=== PATIENT | female | born 1945 | race Caucasian/White ===

== ENCOUNTER 2016-11-22 05:54 | Day surgery (SDC) | payer MEDICARE, BC ==
[2016-11-21 18:26] VITALS: BMI 27.9
[2016-11-22 06:49] LABS: #Eosinphils 0.1 thou/uL (0.0-0.7); #Monocytes 0.4 thou/uL (0.11-0.59); #Neutrophils 5.1 thou/uL (1.40-6.50); %Basophils 0.4 % (0.0-1.0); %Eosinophils 0.8 % (0.0-10.0); %Lymphocytes 14.6 % (21.0-51.0); %Monocytes 5.9 % (0.0-10.0); Hematocrit 30.5 % (36.0-47.0); Red Blood Cell (RBC) Count 3.15 mill/uL (4.20-5.40); White Blood Cell (WBC) Count 6.6 thou/uL (4.8-10.8)
[2016-11-22 06:55] LABS: PTT 32.6 SEC (22.9-36.1); Prothrombin Time 16.5 SEC (12.0-14.7)
[2016-11-22] MEDS ORDERED: Propofol 1,000 MG/100 ML VIAL IV ONE (06:58)
[2016-11-22 07:09] LABS: Anion Gap 18 mmol/L (10-20); BUN (Urea Nitrogen) 37 mg/dL (9.8-20.1); Calc. Creatinine Clearance 48 mL/min (70-130); Calcium 9.1 mg/dL (7.8-10.44); Carbon Dioxide 22 mmol/L (23-31); Chloride 101 mmol/L (98-107); Estimated GFR-MDRD 40
[2016-11-22] MEDS ORDERED: Propofol 200 MG/20 ML VIAL ONE (08:21)
--- NOTE | 2016-11-22 09:50 | OP ---
DATE OF PROCEDURE: 11/22/2016 REFERRING PHYSICIAN: Dr. Aniket Dyson REASON FOR PROCEDURE: Ms. Delong is a 71-year-old woman with prior history of mitral valve repair, underwent pulmonary venous isolation procedure 07/06/2016. She also has left atrial appendage ligat ion. MICHEL prior to this procedure demonstrates left appendage, which is well ligated without any pre sence of clots in left atrium. She has a dual chamber pacemaker in place. We attempted pace termination of the atypical atrial flutter, but was unsuccessful, even though maxi mizing the output. Following that, after adequate level of sedation achieved, a synchronized 70 shawn le shock promptly converted the patient back to sinus rhythm. CONCLUSION: Successful cardioversion. PLAN: For now, continue amiodarone and Eliquis for a month. After that likely we will stop Eliquis regardless hence the left atrial appendage ligation.
--- NOTE | 2016-11-22 10:14 | OP ---
DATE OF PROCEDURE: 11/22/2016 PROCEDURE: Pacemaker interrogation. REASON FOR PROCEDURE: Ms. Delong is a 71-year-old woman who has had remote mitral valve repair and maze procedure and left atrial appendage ligation. She had a pulmonary venous isolation in 06/2016 and had recurrent atrial flutter, here for cardioversion. Before and after the procedure as well as pace termination of the arrhythmia was attempted. Interrogation revealed a [employer] EnRhythm dual-chamber pacemaker with battery voltage is 2.85 volt s, which is approaching EVERARDO. The lead impedance 440 ohms, 776 ohms respectively in the atrium and R V, sensing in the PV is 0.4 millivolts, in the RV 8.9 millivolts flutter. Capture thresholds seem to be adequate in the ventricles. Interrogation of the episodes to indicate persisting atrial fibrillation since the beginning of October. Atrial fibrillation/flutter during October. ____ _ seems to indicate steady atrial flutter with cycle length about 320 milliseconds. Overdrive pacin g of this flutter was attempted and was not successful in terminating the rhythm. Following that ca rdioversion was performed. Please see separate report. Post-cardioversion sinus rhythm ensued and the patient was reprogrammed to base rate at 70 beats per minute. Also, we did turn on again the atrial antitachycardiac pacing therapies for potential recu rrence. CONCLUSION: 1. Adequately functioning dual chamber pacemaker, although approaching elective replacement indicat or. 2. Increased base rate for atrial device suppression. 3. Atrial and ventricular pacing was turned on. PLAN: Routine followup expedited, hence the lower battery voltage.
--- NOTE | 2016-11-22 18:36 | ECHO ---
DATE OF SERVICE: 11/22/16 REFERRING PHYSICIAN: Aniket Dyson M.D. REASON FOR PROCEDURE: The patient is a 71-year-old woman who has history of mitral valve repair and left atrial maze procedure/left atrial appendage ligation. She underwent pulmonary venous isolation procedure by Dr. Zaidi on July 06, 2016. She is on chronic amiodarone. She did develop recurrence of atypical flutter in the beginning of October. Persistent since. Here for MICHEL guided cardioversion. The patient is to resume her Eliquis medication. PROCEDURE: The patient received propofol per Anesthesia provider After adequate sedation achieved, the transesophageal electrogram probe was passed into the esophagus without difficulty. Patient tolerated the procedure well, no complications. RESULTS: 1. Left atrial enlarged about 4.7 cm in horizontal diameter. 2.. Pulmonary veins were visualized. Left atrial appendage appears to be ligated with trivial flow seen which is less than 1 mm. The actual body of the appendage is not well seen. The mitral valve with signs of prior repair with a ring in place. Mitral valve opens otherwise well and mild regurgitation noted only. The left ventricular systolic function is preserved. Left ventricular systolic function is normal. The interatrial septum has a trivially patent foraminal ovale. Agitated saline reveals no crossover from right to left, with epigastric pressure. The right side chamber is mildly dilated. The pacing wires in adequate position noted. No vegetations identified. The tricuspid valve was severely regurgitant. Peak TR velocity was about 2 meters per 3. Mild dilation of the inferior vena cava is visualized. The aortic valve is with 3 leaflets and mo stenosis, but with trace regurgitation. Pulmonary valve also with trace regurgitation. No stenosis are seen on the aortic or pulmonary or tricuspid valves or the mitral valve. 3. No pericardial effusion noted. The visualized portion of the ascending and descending aortic without aneurysm, dissection or significant atheroma. CONCLUSION: 1. No evidence of intracardiac clots. 2. Prior left atrial appendage ligation seems to still holds no significant residual atrial appendage is visualized. 3. Four pulmonary veins are seen. 4. Normal left ventricular systolic function. 5. Mitral valve repair with only mild mitral regurgitation left. No significant stenosis identified. 6. Moderate to severe tricuspid regurgitation seen with TR velocity of 2 meter per second, signs of right atrial pressure elevation is also seen. PLAN: Proceed with a cardioversion. [facility]
== END 2016-11-22 09:55 | disposition home or self-care (01) ==
LOC: CCL 05:54
PROVIDERS: ATTEND Internal Medicine Cardiovascular Disease
DX: I48.92 Unspecified atrial flutter (principal); I48.1 Persistent atrial fibrillation; E11.9 Type 2 diabetes mellitus without complications; E03.9 Hypothyroidism, unspecified; G40.909 Epilepsy, unspecified, not intractable, without status epilepticus; Z79.01 Long term (current) use of anticoagulants; Z79.4 Long term (current) use of insulin; Z79.899 Other long term (current) drug therapy; Z90.89 Acquired absence of other organs; Z90.711 Acquired absence of uterus with remaining cervical stump; Z98.890 Other specified postprocedural states
CPT/HCPCS: 80048; 85025; 85610; 85730; 92960; 93005; 93010; 93312; J2704

== ENCOUNTER 2017-01-24 11:26 | Inpatient (IN) | payer MEDICARE, BC ==
[2017-01-24 11:48] LABS: #Eosinphils 0.2 thou/uL (0.0-0.7); #Lymphocytes 3.7 thou/uL (1.20-3.40); #Monocytes 0.7 thou/uL (0.11-0.59); %Basophils 0.1 % (0.0-1.0); %Lymphocytes 38.5 % (21.0-51.0); %Monocytes 7.6 % (0.0-10.0); Hematocrit 35.7 % (36.0-47.0); Mean Platelet Volume 7.3 fL (7.4-10.4); Red Blood Cell (RBC) Count 3.71 mill/uL (4.20-5.40); White Blood Cell (WBC) Count 9.7 thou/uL (4.8-10.8)
[2017-01-24 11:59] LABS: PTT 25.9 SEC (22.9-36.1); Prothrombin Time 12.8 SEC (12.0-14.7)
[2017-01-24 12:08] LABS: ALT (SGPT) 12 U/L (8-55); AST (SGOT) 12 U/L (5-34); Alkaline Phosphatase 145 U/L (40-150); Anion Gap 16 mmol/L (10-20); BUN (Urea Nitrogen) 22 mg/dL (9.8-20.1); Bilirubin, Total 0.4 mg/dL (0.2-1.2); Calc. Creatinine Clearance 0 mL/min (70-130); Calcium 9.6 mg/dL (7.8-10.44); Carbon Dioxide 18 mmol/L (23-31); Estimated GFR-MDRD 42; Globulin 3.5 g/dL (2.4-3.5); Protein, Total 7.8 g/dL (6.0-8.3); Troponin I 0.017 ng/mL (< 0.028)
--- NOTE | 2017-01-24 12:16 | CT ---
CT OF THE BRAIN STROKE PROTOCOL: Date: 01/24/17 INDICATION: Stroke activation. 71-year-old female with altered mental status, tachycardia, and hypertension. 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 No acute infarct, hemorrhage, or hydrocephalus is present. Septum pellucidum and third ventricle are midline. There are bilateral scl eral jed. IMPRESSION: No acute intracranial abnormality. Findings called to Dr. Barnes at 1200 hours on 01/24/17. CODE CR. POS: [facility]
[2017-01-24 12:28] LABS: Chloride 99 mmol/L (98-107)
[2017-01-24] MEDS ORDERED: carBAMazepine 200 MG TAB PO SCH ×3 (13:30→19:15)
[2017-01-24] MEDS ORDERED: levETIRAcetam In NaCl (Iso-Os) 1,500 MG in Premix Bag 1 BAG IVPB ONE ×2 (13:30)
[2017-01-24 13:51] LABS: Bilirubin Negative (Negative); Blood, Urine Negative (Negative); Glucose, Urine (Dipstick) >=1000 mg/dL (Negative); Ketone, Urine Negative (Negative); Nitrite Negative (Negative); Protein, Urine (Dipstick) 30 mg/dL (Neg-Trace); Urobilinogen 0.2 mg/dL (0.2-1.0)
[2017-01-24 13:53] LABS: Bacteria/HPF None Seen HPF (None Seen); Hyaline Casts/LPF 0-3 HYALINE CAST LPF (0-3 Hyaline); RBC/HPF 0-3 HPF (0-3); Squamous Epithelial 0-3 HPF (0-3)
[2017-01-24] MEDS ORDERED: Digoxin 0.5 MG/2 ML AMP ONE (13:53)
[2017-01-24 13:57] LABS: Amphetamine Not Detected (NotDetected); Methadone Not Detected (NotDetected); Methamphetamine Not Detected (NotDetected)
--- NOTE | 2017-01-24 14:06 | CT ---
CTA OF THE HEAD AND NECK UTILIZING IV CONTRAST WITH 3D REFORMATTED IMAGING CT PERFUSION EVALUATION: COMPARISON: CT STROKE BRAIN DATED 01/24/17. FINDINGS: No gross abnormality is seen on the CT perfusion images to suggest the presence of acute ischemia. There is prominent motion artifact seen at the level of the carotid bifurcation limiting evaluation o f the carotid bulbs as well as the proximal internal carotid arteries bilaterally; however, the remai carla course of the internal carotid arteries appears within normal limits. The visualized carotid si phons, middle cerebral and anterior cerebral arteries are patent. Both posterior cerebral arteries a ppear patent. The basilar artery and vertebral arteries appear patent throughout their course. There is subsegmental volume loss involving the visualized lungs. The visualized soft tissues of the neck appear within normal limits. No definite acute intracranial abnormality is grossly evident. No area of abnormal enhancement is no becka. Enlarged surface ostium along the left parietal skull. Mastoid air cells are clear. There are bilateral scleral jed. IMPRESSION: 1. Limitations of the exam as above. 2. No definite evidence of acute ischemia by CT perfusion evaluation. 3. No definite hemodynamically significant stenosis; however, significant motion artifact limits det ail. 4. Findings called to Dr. Barnes at 12:25 p.m. on 01/24/17. CODE CR POS: [facility]
[2017-01-24] MEDS ORDERED: ISOVUE-370 76%-LOCM 1 ML ONE (15:52)
--- NOTE | 2017-01-24 16:01 | HP ---
PRIMARY CARE PHYSICIAN: Heriberto Deleon M.D. REASON FOR ADMISSION: Seizure, hypertensive urgency, atrial fibrillation with rapid ventricular response, rule out CVA. HISTORY OF PRESENT ILLNESS: A 71-year-old female who has underlying history of diabetes type 2, hypertension, chronic atrial fibrillation on chronic anticoagulation therapy, who was brought to the emergency room for altered mental status. Patient's family member present at bedside. They report that yesterday, patient had an appointment with Dr. Christopher Beyer and patient was instructed to hold Eliquis and amiodarone therapy because patient was planned for surgical procedure in [place] for her atrial fibrillation in coming February. This morning, the patient was completely fine, but she was slow in her action. She went to work. At workplace, she was doing initially completely normal, but subsequently she had episode of seizure activity and coworker reported as generalized tonic shaking activity and patient did not have any recall of this event. Patient was completely altered and she was postictal. She was not providing any history when she came to the emergency room, but after while she recovered and she was completely up to her baseline. Patient's daughter present at bedside who reports that she has minor blinking movement of seizure, which we are calling as a seizure, which happens all the time and she is taking Keppra, but this type of prolonged seizure never had before and this was first time happened at work place. She was denying any headaches. She was not having any fall. She did not have any fever or chills. She did not have any focal motor weakness or sensory symptoms. She did not have any chest pain, palpitation and dizziness. The patient has atrial fibrillation all the time and family member reports that her rate is difficult to control. She had a cardioversion in October, which was also unsuccessful and the patient had about a month ago, pacemaker procedure. The patient denies any fever, chills, UTI symptoms. She denies any constipation , melena or hematochezia. She denies any abdominal pain. She denies any slurred speech. ALLERGIES: No known drug allergies. CURRENT HOME MEDICATIONS: Amiodarone and Eliquis therapy was discontinued from yesterday, carbamazepine 100 mg twice daily, digoxin 0.125 mg p.o. daily, Lasix 40 mg p.o. daily, Glucotrol 10 mg p.o. daily, Keppra 500 mg p.o. b.i.d., Synthroid 125 mcg p.o. daily, lisinopril 20 mg p.o. daily, metformin 1000 mg p.o. b.i.d. and metoprolol 50 mg p.o. b.i.d. REVIEW OF SYSTEMS: The following complete review of systems was negative, unless otherwise mentioned in the HPI or below: CONSTITUTIONAL: Weight loss or gain, ability to conduct usual activities. SKIN: Rash, itching. EYES: Double vision, pain. ENT/MOUTH: Nose bleeding, neck stiffness, pain, tenderness. CARDIOVASCULAR: Palpitations, dyspnea on exertion, orthopnea. RESPIRATORY: Shortness of breath, wheezing, cough, hemoptysis, fever or night sweats. GASTROINTESTINAL: Poor appetite, abdominal pain, heartburn, nausea, vomiting, constipation, or diarrhea. GENITOURINARY: Urgency, frequency, dysuria, nocturia. MUSCULOSKELETAL: Pain, swelling. NEUROLOGIC/PSYCHIATRIC: Anxiety, depression. ALLERGY/IMMUNOLOGIC: Skin rash, bleeding tendency. Please see my HPI for pertinent positives and negatives. All other review of system reviewed and negative except that mentioned in the HPI. PAST MEDICAL HISTORY: Hypertension, dyslipidemia, seizure disorder, diabetes type 2, atrial fibrillation on chronic anticoagulation therapy with Eliquis. PAST SURGICAL HISTORY: Mitral valve repair, pacemaker procedure, herniorrhaphy , appendicectomy and tonsillectomy. PAST PSYCHIATRIC HISTORY: Reviewed and negative. SOCIAL HISTORY: Patient is working in an office as a corporate secretary. No history of tobacco, alcohol or illicit drug abuse. She is and lives with her daughter. FAMILY HISTORY: Hypertension, diabetes, and cancer runs among several family members. EMERGENCY ROOM COURSE: Patient is getting Cardizem drip. Patient is given aspirin 325 mg, digoxin 0.25 mg, Keppra 1500 mg, Tegretol 300 mg p.o. and Cardizem 10 mg IV push. PHYSICAL EXAMINATION: VITAL SIGNS: On arrival, blood pressure 223/143, pulse 155 irregular, respiratory rate 24, temperature 98.6, saturation 97% on room air. Weight 68.4 kilograms. GENERAL: Patient is currently alert, awake, no obvious acute distress, hypertensive in atrial fibrillation. HEAD: Normocephalic, atraumatic. EYES: Pupils round, reactive to light. Extraocular muscles intact. ENT: Oropharynx within normal limits. Moist mucous membranes. No oral lesions. No pharyngeal erythema, no exudate. NECK: Supple, no JVD, no thyromegaly, no carotid bruit, no meningeal signs of irritation. LUNGS: Clear to auscultation without any rhonchi or rales. CARDIAC: S1, S2 irregularly irregular. No murmur, no gallop, no rub. ABDOMEN: Soft, bowel sounds present, nontender, nondistended. No organomegaly , no mass, no suprapubic tenderness. BACK: Unremarkable, no CVA tenderness. EXTREMITIES: Upper extremity: Passive movement of all joints normal. Lower extremity: No edema. Good peripheral pulsation. SKIN: No skin rash. HEMATOLOGICAL SYSTEM: At this point, when I saw this patient, I could not determine any focal neurological deficits She is alert and oriented x3. Cranial nerves II-XII intact. Motor and sensation within normal limits. Speech is normal. No cerebellar sign. Reflexes symmetrical. SIGNIFICANT LABS: EKG based on my review, atrial fibrillation with rapid ventricular response, incomplete right bundle branch block pattern. CT of brain based on my review, no acute intracranial process. CT angiography head and neck negative for any acute stenosis. CBC: WBC 9.7, hemoglobin 12.5, platelets 180. INR 1.0. BMP: Sodium 134, potassium 3.6, chloride 99, carbon dioxide 18, BUN 22, creatinine 1.25, glucose 368, calcium 9.6. LFT: AST 12, ALT 12, CK-MB 1.6, troponin 0.017, albumin 4.3 , prolactin 66.06. Urinalysis: Leukocyte esterase trace, wbc 4-6. Urine drug screen negative. Dilantin level less than 1.8, valproic acid less than 12.5. Tegretol level 6.3. ASSESSMENT AND PLAN/IMPRESSION: 1. Acute seizure. 2. Acute encephalopathy, likely postictal phase. 3. Hypertensive urgency, stress emergency. 4. Atrial fibrillation with rapid ventricular response. 5. Chronic kidney disease stage 3. 6. Hyperglycemia associated with diabetes type 2. 7. Hypothyroidism. PLAN: Full admission to stroke floor. Neuro check q.4 hourly. Neurologic consultation. MRI is not possible because of pacemaker. Cardiology consultation because for atrial fibrillation. As per family member, the patient is on hold Eliquis and amiodarone therapy for upcoming surgical procedure in [place]. We will continue digoxin and will check digoxin level tomorrow. The patient selected home medication including Glucotrol, metformin will be continued. We will also resume Synthroid 125 mcg p.o. daily. We will increase Keppra to 1000 mg p.o. b.i.d. We will continue Cardizem drip while in hospital. Anticoagulation will defer to Cardiology. Cardiology team and pressurization mechanic will be consulted while in hospital. Code status: The patient is FULL CODE. Patient's daughter is surrogate decision maker. Disposition plan based on clinical course, we are expecting patient's stay in the hospital more than 2 midnights. Gastrointestinal prophylaxis, Pepcid 20 mg p.o. b.i.d. We will obtain carotid Doppler ultrasound while in hospital. Plan of care discussed with the family member at bedside in the emergency room. ALEX[facility]
[2017-01-24] MEDS ORDERED: Dextrose 5% in Water 1,000 ML IV PRN (16:08)
[2017-01-24] MEDS ORDERED: Loperamide HCl 2 MG CAP PO PRN (16:08)
[2017-01-24] MEDS ORDERED: Ondansetron HCl/PF 4 MG/2 ML Vial IVP PRN (16:08)
[2017-01-24] MEDS ORDERED: Artificial Tears 18 DROP/0.9 ML EA EYE PRN (16:08)
[2017-01-24] MEDS ORDERED: Zolpidem Tartrate 5 MG TAB PO PRN (16:08)
[2017-01-24] MEDS ORDERED: Ondansetron ODT 4 MG TAB PO PRN (16:08)
[2017-01-24] MEDS ORDERED: HYDROcodone/Acetaminophen 5/325 mg Tablet PO PRN (16:08)
[2017-01-24] MEDS ORDERED: Mag-Al 1200 mg/1200 mg/30 ML UDCUP PO PRN (16:08)
[2017-01-24] MEDS ORDERED: Nitroglycerin 0.4 MG TAB (25 Tab Bottle) SL PRN (16:08)
[2017-01-24] MEDS ORDERED: Dextrose 50% Abboject 50 ML SYRINGE SLOW IVP PRN (16:08)
[2017-01-24] MEDS ORDERED: cloNIDine 0.1 MG TAB PO PRN (16:08)
[2017-01-24] MEDS ORDERED: Sodium Chloride 0.65% Nasal 44 ML BOT EA NARE PRN (16:08)
[2017-01-24] MEDS ORDERED: Senokot 8.6 MG TAB PO PRN (16:08)
[2017-01-24] MEDS ORDERED: HumaLOG 300 UNITS/3 ML VIAL SC PRN ×2 (16:08)
[2017-01-24] MEDS ORDERED: Labetalol HCl 100 MG/20 ML VIAL SLOW IVP PRN (16:08)
[2017-01-24] MEDS ORDERED: Diabetic Tussin 200 MG/10 ML UDCUP PO PRN (16:08)
[2017-01-24] MEDS ORDERED: hydrALAZINE 20 MG/ML VIAL SLOW IVP PRN (16:08)
[2017-01-24] MEDS ORDERED: Milk Of Magnesia 30 ML UDCUP PO PRN (16:08)
[2017-01-24] MEDS ORDERED: Acetaminophen 325 MG TAB PO PRN (16:08)
[2017-01-24] MEDS ORDERED: Loratadine 10 MG TAB PO PRN (16:08)
[2017-01-24] MEDS ORDERED: Eucerin (Mineral Oil/Petrolatum,White) 30 gm Jar TOP PRN (16:08)
[2017-01-24 17:50] VITALS: BMI 29.9
[2017-01-24] MEDS: metFORMIN 500 MG TAB PO SCH (19:30)
--- NOTE | 2017-01-24 21:01 | CON ---
DATE OF CONSULTATION: 01/24/2017 CONSULTING PHYSICIAN: Hospitalist Service. IMPRESSION: Breakthrough seizures, likely secondary to a combination of the hyperglycemia and droppi ng Tegretol level. PLAN: 1. Increase Tegretol to 400 mg twice a day. 2. Continue Keppra 1500 mg twice a day. 3. Address blood sugar. 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 Her daughters report that her seizures have markedly increased in the short term with an actua l convulsive event which has not occurred in quite some time. She was brought in after having an raulito nt at work. Her Tegretol level was 6.3. Electrolytes otherwise unremarkable other than a blood suga r of 368. CT of the brain was normal. I would suggest increasing her Tegretol dose and I will follow up with her in the office.
[2017-01-24] MEDS: Enoxaparin Sodium 80 MG/0.8 ML SYRINGE SC SCH (21:15)
[2017-01-24] MEDS: Lisinopril 20 MG TAB PO SCH (21:16)
[2017-01-24] MEDS: Famotidine 20 MG TAB PO SCH (21:17)
[2017-01-24] MEDS: Atorvastatin Calcium 20 MG TAB PO SCH (21:17)
[2017-01-24] MEDS: levETIRAcetam In NaCl (Iso-Os) 1,000 MG in Premix Bag 1 BAG IVPB SCH ×2 (21:17)
[2017-01-24] MEDS: Metoprolol Tartrate 50 MG TAB PO SCH (21:17)
--- NOTE | 2017-01-24 22:54 | ULT ---
ULTRASOUND CAROTID DOPPLER: History: Altered mental status. TIA. Technique: Real-time grayscale and color doppler evaluation of the carotid and vertebral arteries per formed. FINDINGS: Antegrade flow both vertebral arteries. No hemodynamically significant stenosis. IMPRESSION: No hemodynamically significant stenosis. POS: [facility]
--- NOTE | 2017-01-25 04:03 | CON ---
DATE OF CONSULTATION: 01/24/2017 REASON FOR CONSULTATION: Atrial fibrillation with a rapid rate. HISTORY OF PRESENT ILLNESS: Ms. Delong is a very pleasant 71-year-old woman. The patient has a long history of atrial fibrillation. She has been on amiodarone following a valve surgery, she said sinc e 2008, despite that she had recurrent atrial fibrillation ablation in the past. She saw Dr. Beyer th is week and they decided to go ahead and let her go off the amiodarone and repeat an ablation in a co uple of months. The patient is on digoxin and metoprolol; however, she did not feel well and this mo rning just felt "fussy." Later this morning, she had a seizure which is something she has had previo usly. She is now resting comfortably and feeling better. Patient has had multiple cardioversions as outlined in the chart. The patient previously was on Eliq uis, but then she has been taken off Eliquis. ALLERGIES: None known. MEDICATIONS: 1. Previously on amiodarone, stop recently. 2. Eliquis. 3. Metoprolol 50 mg twice a day. 4. Digoxin 0.125 mg a day. REVIEW OF SYSTEMS: Constitutional: No significant weight gain or loss. Vision: No changes. Heari ng: No changes. Pulmonary: No cough or wheezing. Gastrointestinal: No nausea, vomiting, or diarr hea. Skin: No rashes. Neurologic: No unilateral weakness or numbness. Psychiatric: No unusual d epression or anxiety. Hematologic: No unusual bruising. Genitourinary: No burning with urination. PAST MEDICAL HISTORY: 1. Hypertension 2. Previous valve surgery, mitral valve repair. PSYCHIATRIC HISTORY: Negative. SOCIAL HISTORY: No alcohol or tobacco. She works in an office as a financial secretary. FAMILY HISTORY: Hypertension, diabetes. PHYSICAL EXAMINATION: GENERAL: A pleasant elderly woman resting comfortably, in no distress. VITAL SIGNS: Blood pressure 133/73, pulse is 120, irregularly irregular. HEENT: Sclerae nonicteric. Mouth mucous membranes moist. NECK: Supple. No lymphadenopathy. LUNGS: Clear. No wheezing, rales, or rhonchi. CARDIAC: Irregularly irregular. No murmur, rub, or gallop. ABDOMEN: Soft, nontender. EXTREMITIES: No clubbing, no cyanosis. There is no edema. HEMATOLOGIC: No unusual bruising. PSYCHIATRIC: Mood and affect normal. NEUROLOGIC: Grossly normal. PERTINENT LABORATORY AND X-RAY FINDINGS: Hemoglobin was 12.5. Potassium was 3.6, glucose was 368. Prolactin 66.06. Troponin 0.017. EKG, atrial fibrillation with a rapid rate. ASSESSMENT: 1. Recurrent atrial fibrillation with a rapid rate. 2. Seizure today, probably unrelated to the fibrillation. PLAN: 1. Dr. Dyson and Pepito to resume care tomorrow. 2. Keep n.p.o. until they see her for possible transesophageal echo and cardioversion. 3. We will resume enoxaparin 70 mg q.12 hours until decision is made about cardioversion. We will l ikely need to be anticoagulant. 4. The patient is currently ordered be on enoxaparin.
[2017-01-25 05:38] LABS: #Basophils 0.1 thou/uL (0.0-0.2); #Eosinphils 0.1 thou/uL (0.0-0.7); #Lymphocytes 1.3 thou/uL (1.20-3.40); #Monocytes 0.6 thou/uL (0.11-0.59); #Neutrophils 3.8 thou/uL (1.40-6.50); %Eosinophils 1.6 % (0.0-10.0); %Lymphocytes 22.7 % (21.0-51.0); %Monocytes 9.7 % (0.0-10.0); Hematocrit 30.6 % (36.0-47.0); Mean Platelet Volume 7.8 fL (7.4-10.4); Red Blood Cell (RBC) Count 3.16 mill/uL (4.20-5.40); White Blood Cell (WBC) Count 5.9 thou/uL (4.8-10.8)
[2017-01-25 05:59] LABS: ALT (SGPT) 9 U/L (8-55); AST (SGOT) 11 U/L (5-34); Alkaline Phosphatase 107 U/L (40-150); Anion Gap 10 mmol/L (10-20); BUN (Urea Nitrogen) 16 mg/dL (9.8-20.1); Bilirubin, Total 0.3 mg/dL (0.2-1.2); Calc. Creatinine Clearance 72 mL/min (70-130); Carbon Dioxide 27 mmol/L (23-31); Chloride 102 mmol/L (98-107); Cholesterol 166 mg/dl (< 200 Desired); Estimated GFR-MDRD 61; Globulin 2.8 g/dL (2.4-3.5); LDL Cholesterol, Calculated 76 mg/dL; Protein, Total 6.4 g/dL (6.0-8.3)
[2017-01-25] MEDS ORDERED: Levothyroxine Sodium 125 MCG TAB PO SCH ×2 (06:00→09:00)
[2017-01-25 06:07] LABS: Digoxin 0.84 ng/mL (0.8-2.0)
[2017-01-25] MEDS: metFORMIN 500 MG TAB PO SCH ×3 (08:38→17:25)
[2017-01-25] MEDS: Enoxaparin Sodium 80 MG/0.8 ML SYRINGE SC SCH ×3 (08:39→21:07)
[2017-01-25] MEDS: Digoxin 0.125 MG TAB PO SCH (08:40)
[2017-01-25] MEDS: carBAMazepine 200 MG TAB PO SCH ×2 (08:40→17:25)
[2017-01-25] MEDS: Metoprolol Tartrate 50 MG TAB PO SCH ×4 (08:41→21:09)
[2017-01-25] MEDS: Famotidine 20 MG TAB PO SCH ×2 (08:41→21:08)
[2017-01-25] MEDS: Lisinopril 20 MG TAB PO SCH ×2 (08:41→21:09)
[2017-01-25] MEDS: levETIRAcetam In NaCl (Iso-Os) 1,000 MG in Premix Bag 1 BAG IVPB SCH ×4 (08:42→21:07)
--- NOTE | 2017-01-25 09:00 | PDOC.PN ---
- Subjective Encounter Start Date: 01/25/17 Encounter Start Time: 07:00 -: old records requested/rev pt is doing well, no seizure, on cardizem drip, rate controlled, daughter bedside - Objective Resuscitation Status: Resuscitation Status FULL:Full Resuscitation MAR Reviewed: Yes Vital Signs & Weight: Vital Signs (12 hours) Temp Pulse Resp BP BP Pulse Ox 01/25/17 08:41 112/75 01/25/17 08:40 102 H 01/25/17 07:36 98 F 91 16 92 L 01/25/17 07:14 98 F 102 H 20 112/75 97 01/25/17 04:18 97 01/25/17 03:38 98 F 91 16 115/69 97 01/24/17 23:13 98.6 F 87 16 131/62 97 01/24/17 21:16 133/60 01/24/17 21:05 98.6 F 87 16 Weight Weight 173 lb 11.2 oz Result Diagrams: 01/25/17 05:23 01/25/17 05:23 Additional Labs: Accuchecks 01/25/17 01/24/17 05:39 21:19 POC Glucose 220 H 298 H Radiology Reviewed by me: Yes (carotid us - no stenosis) EKG Reviewed by me: Yes (afib) Phys Exam - Physical Examination Constitutional: NAD HEENT: PERRLA, moist MMs, sclera anicteric Neck: no JVD, supple Respiratory: no wheezing, no rales, no rhonchi Cardiovascular: no significant murmur, irregular Gastrointestinal: soft, non-tender, no distention, positive bowel sounds Musculoskeletal: no edema, pulses present Neurological: non-focal, normal sensation, moves all 4 limbs Lymphatic: no nodes Psychiatric: normal affect, A&O x 3 Skin: no rash, normal turgor Dx/Plan (1) Atrial fibrillation with RVR Code(s): I48.91 - UNSPECIFIED ATRIAL FIBRILLATION Status: Acute (2) Encephalopathy acute Code(s): G93.40 - ENCEPHALOPATHY, UNSPECIFIED Status: Acute (3) Chronic anticoagulation Code(s): Z79.01 - [employer] (CURRENT) USE OF ANTICOAGULANTS Status: Chronic (4) Diabetes type 2, controlled Code(s): E11.9 - TYPE 2 DIABETES MELLITUS WITHOUT COMPLICATIONS Status: Chronic (5) Dyslipidemia Code(s): E78.5 - HYPERLIPIDEMIA, UNSPECIFIED Status: Chronic (6) Hypothyroidism Code(s): E03.9 - HYPOTHYROIDISM, UNSPECIFIED Status: Chronic (7) Seizure disorder Code(s): G40.909 - EPILEPSY, UNSP, NOT INTRACTABLE, WITHOUT STATUS EPILEPTICUS Status: Chronic - Plan cont current plan of care, plan discussed w/ family * rate controlled with cardizem * pt is npo in case if she needs cardioversion * continue lovenox * discussed with daughter * tegretol dose increased and now no more seizure * medication reviewed as below * symptomatic treatment. * will monitor today and consider discharge when cardiology ok and rate controlled with oral meds Review of Systems - Review of Systems ENT: negative: Ear Pain, Ear Discharge, Nose Pain, Nose Discharge, Nose Congestion, Mouth Pain, Mouth Swelling, Throat Pain, Throat Swelling, Other Respiratory: negative: Cough, Dry, Shortness of Breath, Hemoptysis, SOB with Excertion, Pleuritic Pain, Sputum, Wheezing Cardiovascular: negative: Chest Pain, Palpitations, Orthopnea, Paroxysmal Noc. Dyspnea, Edema, Light Headedness, Other Gastrointestinal: negative: Nausea, Vomiting, Abdominal Pain, Diarrhea, Constipation, Melena, Hematochezia, Other Genitourinary: negative: Dysuria, Frequency, Incontinence, Hematuria, Retention , Other Musculoskeletal: negative: Neck Pain, Shoulder Pain, Arm Pain, Back Pain, Hand Pain, Leg Pain, Foot Pain, Other Skin: negative: Rash, Lesions, Brian, Bruising, Other - Medications/Allergies Allergies/Adverse Reactions: Allergies Allergy/AdvReac Type Severity Reaction Status Date / Time No Known Drug Allergies Allergy Verified 11/21/16 18:15 Medications: Current Medications Acetaminophen (Tylenol) 650 mg PO Q4H PRN PRN Reason: Headache/Fever or Pain Hydrocodone Bitart/Acetaminophen ([place] 5/325) 1 tab PO Q4H PRN PRN Reason: Moderate Pain (4-6) Al Hydroxide/Mg Hydroxide (Maalox) 30 ml PO Q6H PRN PRN Reason: Heartburn or Indigestion Artificial Tears (Tears Naturale) 0 drop EA EYE PRN PRN PRN Reason: Dry Eyes Aspirin (Aspirin Chewable) 81 mg PO DAILY [facility] Last Admin: 01/25/17 08:40 Dose: 81 mg Atorvastatin Calcium (Lipitor) 20 mg PO HS [facility] Last Admin: 01/24/17 21:17 Dose: 20 mg Carbamazepine (Tegretol) 400 mg PO BID-[facility] Last Admin: 01/25/17 08:40 Dose: 400 mg Clonidine (Catapres) 0.1 mg PO Q4H PRN PRN Reason: Systolic BP > 180 Dextrose/Water (Dextrose 50%) 25 gm SLOW IVP PRN PRN PRN Reason: Hypoglycemia Digoxin (Lanoxin) 0.125 mg PO DAILY [facility] Last Admin: 01/25/17 08:40 Dose: 0.125 mg Enoxaparin Sodium (Lovenox) 70 mg SC 0900,2100 [facility] Last Admin: 01/25/17 08:39 Dose: Not Given Famotidine (Pepcid) 20 mg PO BID [facility] Last Admin: 01/25/17 08:41 Dose: 20 mg Glipizide (Glucotrol Xl) 10 mg PO QAM-[facility] Last Admin: 01/25/17 08:38 Dose: Not Given Glucagon (Glucagon) 1 mg IM PRN PRN PRN Reason: Hypoglycemia Guaifenesin (Robitussin Sf) 200 mg PO Q4H PRN PRN Reason: Cough Hydralazine HCl (Apresoline) 10 mg SLOW IVP Q4H PRN PRN Reason: Systolic BP > 180 Dextrose/Water (D5w) 1,000 mls @ 0 mls/hr IV .Q0M PRN; As Directed PRN Reason: Hypoglycemia Levetiracetam 1,000 mg/ Device 100 mls @ 200 mls/hr IVPB BID [facility] Last Admin: 01/25/17 08:42 Dose: 100 mls Insulin Human Lispro (Humalog) 0 units SC .MODERATE SLIDING SC PRN PRN Reason: Moderate Correctional Scale Insulin Human Lispro (Humalog) 0 units SC .BEDTIME SLIDING SC PRN PRN Reason: Bedtime Correctional Scale Last Admin: 01/24/17 21:29 Dose: 3 unit Labetalol HCl (Normodyne) 20 mg SLOW IVP Q4H PRN PRN Reason: Systolic BP > 180 Levothyroxine Sodium (Synthroid) 125 mcg PO 0900 [facility] Stop: 01/25/17 10:00 Last Admin: 01/25/17 08:58 Dose: 125 mcg Levothyroxine Sodium (Synthroid) 125 mcg PO 0600 [facility] Lisinopril (Zestril) 20 mg PO BID [facility] Last Admin: 01/25/17 08:41 Dose: 20 mg Loperamide HCl (Imodium) 2 mg PO PRN PRN PRN Reason: Diarrhea/Loose Stools Loratadine (Claritin) 10 mg PO DAILYPRN PRN PRN Reason: Sinus Symptoms Magnesium Hydroxide (Milk Of Magnesium) 30 ml PO DAILYPRN PRN PRN Reason: Constipation Metformin HCl (Glucophage) 1,000 mg PO BID-[facility] Last Admin: 01/25/17 08:38 Dose: Not Given Metoprolol Tartrate (Lopressor) 50 mg PO BID [facility] Last Admin: 01/25/17 08:41 Dose: 50 mg Mineral Oil/White Petrolatum (Eucerin Cream) 0 gm TOP BIDPRN PRN PRN Reason: Dry Skin Nitroglycerin (Nitrostat) 0.4 mg SL Q5MIN PRN PRN Reason: Chest Pain Ondansetron HCl (Zofran Odt) 4 mg PO Q6H PRN PRN Reason: Nausea/Vomiting Ondansetron HCl (Zofran) 4 mg IVP Q6H PRN PRN Reason: Nausea/Vomiting Senna (Senokot) 2 tab PO HSPRN PRN PRN Reason: Constipation Sodium Chloride ([place] Nasal [place] 0.65%) 0 ml EA NARE QIDPRN PRN PRN Reason: Nasal Congestion Zolpidem Tartrate (Ambien) 5 mg PO HSPRN PRN PRN Reason: Insomnia
[2017-01-25] MEDS: Atorvastatin Calcium 20 MG TAB PO SCH (21:08)
[2017-01-26] MEDS ORDERED: Levothyroxine Sodium 125 MCG TAB PO SCH (06:00)
[2017-01-26 07:49] VITALS: TEMP 97.9
--- NOTE | 2017-01-26 08:05 | CON ---
DATE OF CONSULTATION: 01/25/2017 ELECTROPHYSIOLOGY CONSULTATION REPORT I am seeing Ms. Delong at our [facility] as an electrophysiologic database reporting consultant. Her problems are: 1. Persisting atrial fibrillation, and now with rapid ventricular rates. A. Prior history of surgical maze procedure along with a mitral valve repair in 2008, status post lef t atrial appendage with ligation. B. Recurrent atrial fibrillation, prompting pulmonary venous antrum isolation by Dr. Zaidi on 01/2017. C. Recurrent atrial fibrillation, prompting chronic amiodarone use, which was just stopped on 2016 due to inefficacy. 2. Previous anticoagulation with Eliquis was stopped in the past due to T documented adequate closur e of the left atrial appendage. 3. History of seizure disorder. 4. Coronary artery risk factors. A. Diabetes. B. Hypertension. C. Hypothyroidism. 5. History of dual-chamber pacemaker implantation in the past. ALLERGIES: None noted. MEDICATIONS AT HOME: Included carbamazepine, metformin, Keppra, glipizide, mag oxide, digoxin, parox etine, metoprolol, lisinopril, furosemide. SUBJECTIVE: Ms. Delong is here due to an episode of atypical seizure. As she says she was at work a nd suddenly developed generalized tonic shaking activity and she does not recall the event. Subseque nt to that, she has postictal with altered mentation for a short while. Now, she is back to normal. It seem to be look some different than her usual seizures. She denies any headaches. She has no ot her focalizing neurological deficits at this time. There is no fever, chills, cough, no PND, orthopn ea, or lower extremity edema. She has mild palpitations. No bleeding issues. REVIEW OF SYSTEMS: A 12-point review of system otherwise unremarkable. PAST MEDICAL HISTORY: As above. SOCIAL HISTORY: Patient denies smoking, ETOH, or drug use. FAMILY HISTORY: Noncontributory. OBJECTIVE: VITAL SIGNS: Blood pressure is 112/75, heart rate 102, respirations 12, patient is afebrile. GENERAL: Alert and oriented woman, in no apparent distress. NECK: Supple. Jugular veins not distended. CHEST: Coarse without crackles. CARDIOVASCULAR: Heart sounds are irregularly irregular. S1 and S2 variable. No murmur or gallop is appreciated. Precordial pacemaker insertion site is well healed. ABDOMEN: Benign. Bowel sounds positive. EXTREMITIES: Lower extremity edema, clubbing, or cyanosis. DATABASE: Telemetry strips reveal atrial fibrillation. LABORATORY DATA: White count is 5.9, hemoglobin 10.4, platelet count is 124. Sodium 135, potassium 4.1. BUN 15 and creatinine 0.9. INR is 1.0. Her phenytoin level is less than 1.8, is 12.5. The head CT from January 24, 2017 shows no acute intracranial abnormality. ASSESSMENT AND PLAN: Ms. Delong is a pleasant 71-year-old woman with a prior history of maze procedu re and left atrial ablation procedure in 05/2016. She required amiodarone for rhythm maintenance. S he recently just her last visit on 01/23/2017. Now, she is admitted not for the atrial fibrill ation, but more because of seizure episodes. Her atrial fibrillation made her rapid requiring IV Car dizem initiation, ever since heart rates are much better controlled. PLAN: 1. Atrial fibrillation rates increase possibly due to the recent discontinuation of amiodarone. She was supposed to increase her metoprolol to 75 twice a day, possibily up to 100 mg twice a day as per our plan. We will initiate 100 mg twice a day now and taper off the diltiazem drip if possible. Di goxin could be continued and she might also need diltiazem on top of the above regimen. At this poin t, I am not planning repeat cardioversion as likely futility. In the long-term after washout, she would be considered for repeat left atrial ablation procedure in February. 2. Hence she had adequate left atrial appendage closure, at this point, I do not see benefits of tre nitiating anticoagulation. These issues were discussed with the patient, Dr. Pulido, and the family. We will follow her as out patient. Thank you for the consult.
[2017-01-26] MEDS: carBAMazepine 200 MG TAB PO SCH (08:27)
[2017-01-26] MEDS: metFORMIN 500 MG TAB PO SCH (08:28)
[2017-01-26] MEDS: Metoprolol Tartrate 50 MG TAB PO SCH (08:28)
[2017-01-26] MEDS: Famotidine 20 MG TAB PO SCH (08:28)
[2017-01-26] MEDS: Lisinopril 20 MG TAB PO SCH (08:28)
[2017-01-26] MEDS: Enoxaparin Sodium 80 MG/0.8 ML SYRINGE SC SCH ×2 (08:29→10:00)
[2017-01-26] MEDS: Digoxin 0.125 MG TAB PO SCH (08:29)
[2017-01-26 08:30] VITALS: BP 133/92
[2017-01-26] MEDS ORDERED: levETIRAcetam 500 MG TAB PO SCH (09:00)
[2017-01-26] MEDS: levETIRAcetam In NaCl (Iso-Os) 1,000 MG in Premix Bag 1 BAG IVPB SCH ×2 (10:00)
--- NOTE | 2017-01-26 10:04 | DIS ---
PRIMARY CARE PHYSICIAN: Heriberto Deleon M.D. DATE OF ADMISSION: 01/24/2017 DATE OF DISCHARGE: 01/26/2017 DISCHARGE DISPOSITION: Home. PRIMARY DISCHARGE DIAGNOSES: 1. Acute seizure with a history of seizure disorder. 2. Acute encephalopathy, likely due to postictal phase, resolved. 3. Hypertensive urgency, controlled. 4. Atrial fibrillation with rapid ventricular response, controlled. SECONDARY DISCHARGE DIAGNOSES: Seizure disorder, chronic kidney disease stage 3, chronic atrial fibr illation, diabetes type 2, hypothyroidism, history of chronic anticoagulation, obesity with body mass index 30. PRIMARY PROCEDURE/OPERATION: None. RADIOLOGICAL INVESTIGATION: CT brain on admission showed no acute intracranial process. Head and ne ck CT scan with angiography and brain perfusion study was negative. Carotid Doppler was also negativ e for any stenosis. SIGNIFICANT LABORATORY DATA: WBC 5.9, hemoglobin 10.4, platelets 124. INR 1.0. Sodium 135, potassi um 4.1, BUN 16, creatinine 0.92, calcium 9.0. Liver enzymes normal. LDL 76, HDL 35, cholesterol 166 , triglycerides 275. Prolactin 66.06. Urinalysis: Leukocyte esterase trace. Urine drug screen neg ative. Dilantin level less than 1.82. Valproic acid less than 12.5. Tegretol level 6.3. DISCHARGE MEDICATIONS: All new medication dose changed, Tegretol 400 mg p.o. b.i.d., Keppra 1000 mg p.o. b.i.d., metoprolol 50 mg q.i.d., aspirin 81 mg p.o. daily. Continue following medications: Dig oxin 0.125 mg p.o. daily, Lasix 40 mg p.o. daily, Glucotrol-XL 10 mg p.o. b.i.d., Synthroid 125 mcg p.o. daily, lisinopril 20 mg p.o. b.i.d., multivitamin 1 tablet p.o. daily, metformin 1000 mg p.o. b. i.d. CONTRAINDICATIONS: None. CODE STATUS: FULL CODE. INPATIENT CONSULTANTS: Dr. Hart was consulted for atrial fibrillation with rapid ventricular respo nse. Subsequently, Dr. Dyson was following. Dr. Christopher Beyer was also consulted while in hospital . TEST RESULTS PENDING ON DISCHARGE: None. ALLERGIES: No known drug allergy. DISCHARGE PLAN: Post hospital, the patient will follow up with Dr. Chava Cardsoo, Dr. Christopher Beyer and primary care physician. HOSPITAL COURSE: A 71-year-old female with the above-mentioned medical problem, who was admitted by me on 01/24/2017. This patient was at work place and she was having a seizure-type of activity and t hat is why paramedics were called and patient was brought to emergency room. In the emergency room, the patient did not have any major seizure, but she was having some partial se izure. This patient has a long history of complex partial seizure and she was taking Keppra and Tegr etol. Her Tegretol level was low and that is why during this admission, we consulted Dr. Chava almanza and he recommended to increase the dose of Keppra as well as the Tegretol which was done as above. While in the hospital, the patient did not have any further seizure activity. Patient was encephalopathic after seizure activity, but that was also resolved by the time of dischar ge. During this admission, we did a CT brain and CT head and neck with brain perfusion study which w as completely normal. Carotid ultrasound was normal and we ruled out CVA with neuro check while in h ospital. The patient was also having hypertensive urgency and that is why we resumed her home medication and w ith that, the patient's blood pressure was under control and we used parenteral basis medication as n eeded. Patient was also having A. fib with RVR and that was initially controlled with Cardizem drip. The [facility] has chronic A. fib and that is why Dr. Hart and Dr. Dyson was following while in hospital a nd Dr. Christopher Beyer also saw this patient. The patient was treated with Cardizem drip which was taper ed off slowly and we increased dose of metoprolol. This patient will need another ablation and she i s off on amiodarone therapy. At this point as per Dr. Beyer, once amiodarone completely washed out fr om the system, she will need another ablation and she does not need any anticoagulation as she had fu ll left atrial appendage closer was done and that is why he was not recommending any anticoagulation therapy. While in hospital, we were not able to do EEG, but that can be done on an outpatient basis. At this point, the patient and family members are eager to go home. All consultants cleared her for discharg e as well. PHYSICAL EXAMINATION VITAL SIGNS: The patient is seen and examined at bedside today. Currently, temperature 97.9, pulse 97, respiratory rate 16, saturation 96% on room air, blood pressure 135/72, weight 173 pounds. GENERAL: The patient is currently alert, awake, no obvious acute distress. HEAD: Normocephalic, atraumatic. EYES: Pupils round, reactive to light. Extraocular muscle intact. ENT: Oropharynx within normal limits. Moist mucous membranes. No oral lesions. No pharyngeal eryt kelby, no exudate. NECK: Supple, no JVD, no meningeal signs of irritation. LUNGS: Clear to auscultation without any rhonchi or rales. CARDIAC: S1, S2 regular without any murmur. ABDOMEN: Soft and benign. EXTREMITIES: No edema. NEUROLOGIC: Nonfocal examination. Overall, patient is medically stable for discharge. All review of systems reviewed with him and kala melara. Discussed with the family member about plan of care. All new medication prescriptions sent to pharmacy. Total time spent on discharge day 31 minutes.
--- NOTE | 2017-01-26 10:21 | PDOC.PN ---
- Subjective Encounter Start Date: 01/26/17 Encounter Start Time: 07:10 Patient seen and examined. No new complaints. No overnight events - Objective Resuscitation Status: Resuscitation Status FULL:Full Resuscitation MAR Reviewed: Yes Vital Signs & Weight: Vital Signs (12 hours) Temp Pulse Resp BP BP Pulse Ox 01/26/17 08:29 100 01/26/17 08:28 133/92 H 01/26/17 08:00 97.9 F 100 16 97 01/26/17 07:15 97.9 F 100 16 143/77 H 97 01/26/17 04:00 97.6 F 97 16 135/72 96 01/25/17 23:08 98.7 F 109 H 16 132/97 H 98 Weight Weight 173 lb 11.2 oz I&O: 01/25/17 01/26/17 01/27/17 06:59 06:59 06:59 Intake Total 300 Balance 300 Result Diagrams: 01/25/17 05:23 01/25/17 05:23 Additional Labs: Accuchecks 01/26/17 01/25/17 01/25/17 05:37 21:03 16:25 POC Glucose 219 H 157 H 133 H 01/25/17 10:34 POC Glucose 238 H EKG Reviewed by me: Yes (afib) Phys Exam - Physical Examination Constitutional: NAD HEENT: PERRLA, moist MMs, sclera anicteric Neck: no JVD, supple Respiratory: no wheezing, no rales, no rhonchi Cardiovascular: no significant murmur, irregular Gastrointestinal: soft, non-tender, no distention, positive bowel sounds Musculoskeletal: no edema, pulses present Neurological: non-focal, normal sensation, moves all 4 limbs Psychiatric: normal affect, A&O x 3 Skin: no rash, normal turgor Dx/Plan (1) Atrial fibrillation with RVR Code(s): I48.91 - UNSPECIFIED ATRIAL FIBRILLATION Status: Acute (2) Encephalopathy acute Code(s): G93.40 - ENCEPHALOPATHY, UNSPECIFIED Status: Acute (3) Chronic anticoagulation Code(s): Z79.01 - [facility] (CURRENT) USE OF ANTICOAGULANTS Status: Chronic (4) Diabetes type 2, controlled Code(s): E11.9 - TYPE 2 DIABETES MELLITUS WITHOUT COMPLICATIONS Status: Chronic (5) Dyslipidemia Code(s): E78.5 - HYPERLIPIDEMIA, UNSPECIFIED Status: Chronic (6) Hypothyroidism Code(s): E03.9 - HYPOTHYROIDISM, UNSPECIFIED Status: Chronic (7) Seizure disorder Code(s): G40.909 - EPILEPSY, UNSP, NOT INTRACTABLE, WITHOUT STATUS EPILEPTICUS Status: Chronic - Plan cont current plan of care, plan discussed w/ family * medication reviewed as below * symptomatic treatment * see discharge edy. Review of Systems - Review of Systems ENT: negative: Ear Pain, Ear Discharge, Nose Pain, Nose Discharge, Nose Congestion, Mouth Pain, Mouth Swelling, Throat Pain, Throat Swelling, Other Respiratory: negative: Cough, Dry, Shortness of Breath, Hemoptysis, SOB with Excertion, Pleuritic Pain, Sputum, Wheezing Cardiovascular: negative: Chest Pain, Palpitations, Orthopnea, Paroxysmal Noc. Dyspnea, Edema, Light Headedness, Other Gastrointestinal: negative: Nausea, Vomiting, Abdominal Pain, Diarrhea, Constipation, Melena, Hematochezia, Other Genitourinary: negative: Dysuria, Frequency, Incontinence, Hematuria, Retention , Other Musculoskeletal: negative: Neck Pain, Shoulder Pain, Arm Pain, Back Pain, Hand Pain, Leg Pain, Foot Pain, Other - Medications/Allergies Allergies/Adverse Reactions: Allergies Allergy/AdvReac Type Severity Reaction Status Date / Time No Known Drug Allergies Allergy Verified 11/21/16 18:15 Medications: Current Medications Acetaminophen (Tylenol) 650 mg PO Q4H PRN PRN Reason: Headache/Fever or Pain Hydrocodone Bitart/Acetaminophen ([place] 5/325) 1 tab PO Q4H PRN PRN Reason: Moderate Pain (4-6) Al Hydroxide/Mg Hydroxide (Maalox) 30 ml PO Q6H PRN PRN Reason: Heartburn or Indigestion Artificial Tears (Tears Naturale) 0 drop EA EYE PRN PRN PRN Reason: Dry Eyes Aspirin (Aspirin Chewable) 81 mg PO DAILY [facility] Last Admin: 01/26/17 08:27 Dose: 81 mg Atorvastatin Calcium (Lipitor) 20 mg PO HS [facility] Last Admin: 01/25/17 21:08 Dose: 20 mg Carbamazepine (Tegretol) 400 mg PO BID-[facility] Last Admin: 01/26/17 08:27 Dose: 400 mg Clonidine (Catapres) 0.1 mg PO Q4H PRN PRN Reason: Systolic BP > 180 Dextrose/Water (Dextrose 50%) 25 gm SLOW IVP PRN PRN PRN Reason: Hypoglycemia Digoxin (Lanoxin) 0.125 mg PO DAILY [facility] Last Admin: 01/26/17 08:29 Dose: 0.125 mg Enoxaparin Sodium (Lovenox) 70 mg SC 0900,2100 [facility] Last Admin: 01/26/17 10:00 Dose: Not Given Famotidine (Pepcid) 20 mg PO BID [facility] Last Admin: 01/26/17 08:28 Dose: 20 mg Glipizide (Glucotrol Xl) 10 mg PO QAM[facility] Last Admin: 01/26/17 08:27 Dose: 10 mg Glucagon (Glucagon) 1 mg IM PRN PRN PRN Reason: Hypoglycemia Guaifenesin (Robitussin Sf) 200 mg PO Q4H PRN PRN Reason: Cough Hydralazine HCl (Apresoline) 10 mg SLOW IVP Q4H PRN PRN Reason: Systolic BP > 180 Dextrose/Water (D5w) 1,000 mls @ 0 mls/hr IV .Q0M PRN; As Directed PRN Reason: Hypoglycemia Insulin Human Lispro (Humalog) 0 units SC .MODERATE SLIDING SC PRN PRN Reason: Moderate Correctional Scale Last Admin: 01/26/17 06:04 Dose: 4 unit Insulin Human Lispro (Humalog) 0 units SC .BEDTIME SLIDING SC PRN PRN Reason: Bedtime Correctional Scale Last Admin: 01/24/17 21:29 Dose: 3 unit Labetalol HCl (Normodyne) 20 mg SLOW IVP Q4H PRN PRN Reason: Systolic BP > 180 Levetiracetam (Keppra) 1,000 mg PO BID [facility] Last Admin: 01/26/17 10:03 Dose: 1,000 mg Levothyroxine Sodium (Synthroid) 125 mcg PO 0600 [facility] Last Admin: 01/26/17 06:06 Dose: 125 mcg Lisinopril (Zestril) 20 mg PO BID [facility] Last Admin: 01/26/17 08:28 Dose: 20 mg Loperamide HCl (Imodium) 2 mg PO PRN PRN PRN Reason: Diarrhea/Loose Stools Loratadine (Claritin) 10 mg PO DAILYPRN PRN PRN Reason: Sinus Symptoms Magnesium Hydroxide (Milk Of Magnesium) 30 ml PO DAILYPRN PRN PRN Reason: Constipation Metformin HCl (Glucophage) 1,000 mg PO BID-[facility] Last Admin: 01/26/17 08:28 Dose: 1,000 mg Metoprolol Tartrate (Lopressor) 50 mg PO QID [facility] Last Admin: 01/26/17 08:28 Dose: 50 mg Mineral Oil/White Petrolatum (Eucerin Cream) 0 gm TOP BIDPRN PRN PRN Reason: Dry Skin Nitroglycerin (Nitrostat) 0.4 mg SL Q5MIN PRN PRN Reason: Chest Pain Ondansetron HCl (Zofran Odt) 4 mg PO Q6H PRN PRN Reason: Nausea/Vomiting Ondansetron HCl (Zofran) 4 mg IVP Q6H PRN PRN Reason: Nausea/Vomiting Senna (Senokot) 2 tab PO HSPRN PRN PRN Reason: Constipation Sodium Chloride ([place] Nasal [place] 0.65%) 0 ml EA NARE QIDPRN PRN PRN Reason: Nasal Congestion Zolpidem Tartrate (Ambien) 5 mg PO HSPRN PRN PRN Reason: Insomnia
== END 2017-01-26 10:55 | disposition home or self-care (01) | DRG 100 ==
LOC: ERS 11:26 → 2SE 13:47
PROVIDERS: ADMIT Internal Medicine; ATTEND Internal Medicine
DX: G40.909 Epilepsy, unspecified, not intractable, without status epilepticus (principal); G93.40 Encephalopathy, unspecified; I48.2 Chronic atrial fibrillation; E11.65 Type 2 diabetes mellitus with hyperglycemia; N18.3 Chronic kidney disease, stage 3 (moderate); I16.0 Hypertensive urgency; E03.9 Hypothyroidism, unspecified; I12.9 Hypertensive chronic kidney disease with stage 1 through stage 4 chronic kidney disease, or unspecified chronic kidney disease; E78.00 Pure hypercholesterolemia, unspecified; E66.9 Obesity, unspecified; Z95.0 Presence of cardiac pacemaker; Z68.30 Body mass index [BMI] 30.0-30.9, adult; Z79.01 Long term (current) use of anticoagulants; Z83.3 Family history of diabetes mellitus; Z82.49 Family history of ischemic heart disease and other diseases of the circulatory system
CPT/HCPCS: 0042T; 36415; 36416; 70450; 70496; 70498; 80053; 80061; 80156; 80162; 80164; 80185; 80306; 81003; 81015; 82553; 84146; 84443; 84484; 85025; 85730; 93005; 93010; 93880; 96365; 96366; 96375; G8978-GP-CI; G8979-GP-CI; G8980-GP-CI; G8987-GO-CI; G8988-GO-CI; G8989-GO-CI; J1160; J1650; J1953; J7050

== ENCOUNTER 2018-01-07 13:15 | Outpatient (CLI) | payer MEDICARE, BC | END 2018-01-07 13:16 | disposition home or self-care (01) | LOC: BICMAMMO 13:15 | PROVIDERS: ATTEND Internal Medicine | DX: Z12.31 Encounter for screening mammogram for malignant neoplasm of breast (principal) | CPT/HCPCS: 77063; 77067 ==

== ENCOUNTER 2018-07-09 08:31 | Emergency (ER) | payer MEDICARE, BC ==
--- NOTE | 2018-07-09 09:02 | RAD ---
EXAM: Two views chest PROVIDED CLINICAL HISTORY: Dyspnea COMPARISON: 08/21/2016 FINDINGS: Dual lead left subclavian cardiac pacemaking device remains in place. Postsurgical changes related to CABG are again noted. The cardiac silhouette remains enlarged. The pulmonary vasculature is within normal limits. The lungs are clear. The osseous structures have a normal appearance. Chest is overall stable compared to prior study. Mild elevation the right hemidiaphragm is again present. IMPRESSION: 1. Stable cardiomegaly. 2. No acute cardiopulmonary process.
[2018-07-09 09:03] LABS: #Lymphocytes 0.7 thou/uL (1.20-3.40); #Monocytes 0.6 thou/uL (0.11-0.59); #Neutrophils 4.6 thou/uL (1.40-6.50); %Basophils 0.2 % (0.0-1.0); %Eosinophils 0.6 % (0.0-10.0); %Lymphocytes 11.8 % (21.0-51.0); %Neutrophils 77.5 % (42.0-75.0); Hemoglobin 8.6 g/dL (12.0-16.0); Mean Corpuscular HGB CONC 34.3 g/dL (32.0-36.0); Mean Corpuscular Hemoglobin 33.9 pg (27.0-31.0); Mean Corpuscular Volume 98.9 fL (78.0-98.0); Mean Platelet Volume 7.1 fL (7.4-10.4); Platelet Count 129 thou/uL (130-400); RBC Distribution Width 14.9 % (11.5-14.5); Red Blood Cell (RBC) Count 2.53 mill/uL (4.20-5.40)
[2018-07-09 09:30] LABS: Digoxin 0.99 ng/mL (0.8-2.0)
[2018-07-09 09:40] LABS: ALT (SGPT) 15 U/L (8-55); AST (SGOT) 18 U/L (5-34); Albumin 4.1 g/dL (3.4-4.8); Alkaline Phosphatase 83 U/L (40-150); Anion Gap 15 mmol/L (10-20); BUN (Urea Nitrogen) 27 mg/dL (9.8-20.1); Bilirubin, Total 0.8 mg/dL (0.2-1.2); CK (CPK) 73 U/L (29-168); Calc. Creatinine Clearance 0 mL/min (70-130); Calcium 9.3 mg/dL (7.8-10.44); Carbon Dioxide 27 mmol/L (23-31); Chloride 102 mmol/L (98-107); Estimated GFR-MDRD 62; Globulin 2.4 g/dL (2.4-3.5); Glucose 252 mg/dL (80-115); Lipase 37 U/L (8-78); Potassium 4.1 mmol/L (3.5-5.1); Protein, Total 6.5 g/dL (6.0-8.3); Sodium 140 mmol/L (136-145)
--- NOTE | 2018-07-09 13:13 | CT ---
CT PULMONARY ANGIOGRAM WITH IV CONTRAST AND 3D POSTPROCESSING: Date: 07/09/18 HISTORY: Dyspnea, orthopnea, and cough. FINDINGS: There is good contrast opacification with pulmonary arterial vasculature without filling defects to s uggest pulmonary embolism. There are vascular calcifications without evidence of aneurysmal dilatatio n of the thoracic aorta. No pleural or pericardial effusions are seen. There are changes of median st ernotomy. There are mild diffuse ground-glass opacities in the lung leigh bilaterally. Calcified gra nulomas are seen. No pneumothoraces, lobar consolidation, or lung masses are identified. There are de generative changes in the spine. IMPRESSION: No CT evidence of pulmonary embolism. POS: TPC
== END 2018-07-09 13:14 | disposition home or self-care (01) ==
LOC: ERS 08:31
DX: R06.02 Shortness of breath (principal); I48.91 Unspecified atrial fibrillation; J45.909 Unspecified asthma, uncomplicated; E11.9 Type 2 diabetes mellitus without complications; E78.5 Hyperlipidemia, unspecified; I10 Essential (primary) hypertension; Z79.899 Other long term (current) drug therapy; Z79.84 Long term (current) use of oral hypoglycemic drugs; Z79.82 Long term (current) use of aspirin
CPT/HCPCS: 36415; 71046; 71275; 80053; 80162; 82550; 83690; 83880; 84484; 85025; 85379; 93005; 94640; 94760

== ENCOUNTER 2019-01-26 06:09 | Day surgery (SDC) | payer MEDICARE, BC ==
[2019-01-21 09:41] VITALS: BMI 30.9
[2019-01-26] MEDS ORDERED: Heparin (Artline) 1,000 ML ONE (06:36)
[2019-01-26] MEDS ORDERED: Heparin 10,000 UNITS/1 ML VIAL ONE (06:36)
[2019-01-26 06:54] LABS: Hemoglobin 8.2 g/dL (12.0-16.0); Mean Corpuscular HGB CONC 32.9 g/dL (32.0-36.0); Mean Corpuscular Hemoglobin 32.6 pg (27.0-31.0); Mean Corpuscular Volume 99.1 fL (78.0-98.0); Mean Platelet Volume 6.9 fL (7.4-10.4); Platelet Count 167 thou/uL (130-400); RBC Distribution Width 17.3 % (11.5-14.5); Red Blood Cell (RBC) Count 2.51 mill/uL (4.20-5.40); White Blood Cell (WBC) Count 8.6 thou/uL (4.8-10.8)
[2019-01-26 07:15] LABS: Lymphocytes 10 % (21-51); MDiff Complete? YES; Monocytes 13 % (0-10); Neutrophil 75 % (42-75); Platelet Morphology Comment Appears Adequate; Polychromasia MODERATE = 3-4 cells (100X) (0-2/hpf); Reactive Lymphocytes 1 % (0-10)
[2019-01-26 07:18] LABS: ALT (SGPT) 26 U/L (8-55); AST (SGOT) 25 U/L (5-34); Albumin 4.2 g/dL (3.4-4.8); Alkaline Phosphatase 128 U/L (40-110); Anion Gap 13 mmol/L (10-20); BUN (Urea Nitrogen) 20 mg/dL (9.8-20.1); Bilirubin, Total 0.9 mg/dL (0.2-1.2); Calc. Creatinine Clearance 61 mL/min (70-130); Carbon Dioxide 27 mmol/L (23-31); Cardiac Risk 2.7 (Less than 4.5); Chloride 102 mmol/L (98-107); Cholesterol 109 mg/dl (< 200 Desired); Estimated GFR-MDRD 51; Globulin 2.8 g/dL (2.4-3.5); Glucose 267 mg/dL (83-110); HDL Cholesterol 41 mg/dL (>60 Neg Risk); LDL Cholesterol, Calculated 29 mg/dL; Sodium 138 mmol/L (136-145); Triglycerides 194 mg/dL (Less than 150)
[2019-01-26] MEDS ORDERED: Fentanyl 100 MCG/2 ML VIAL ONE (07:32)
[2019-01-26] MEDS ORDERED: Midazolam HCl 2 mg/2 ml Vial ONE (07:32)
[2019-01-26] MEDS ORDERED: Protamine Sulfate 50 MG/5 ML VIAL ONE (08:20)
[2019-01-26] MEDS ORDERED: Acetaminophen/Codeine 30-300mg Tablet ONE (11:15)
[2019-01-26] MEDS ORDERED: Iopamidol 370 76% 100 ML VIAL ONE (15:06)
[2019-01-26] MEDS ORDERED: Iopamidol 370 76% 50 ML VIAL FS ONE (15:06)
== END 2019-01-26 16:00 | disposition home or self-care (01) ==
LOC: EEVIPCON 06:09 → CCL 06:09
PROVIDERS: ATTEND Internal Medicine Cardiovascular Disease
PROC: 4A023N8 Measurement of Cardiac Sampling and Pressure, Bilateral, Percutaneous Approach (ICD-10-PCS; principal; 2019-01-26)
PROC: B2111ZZ Fluoroscopy of Multiple Coronary Arteries using Low Osmolar Contrast (ICD-10-PCS; 2019-01-26)
DX: I35.0 Nonrheumatic aortic (valve) stenosis (principal); I34.0 Nonrheumatic mitral (valve) insufficiency; I48.0 Paroxysmal atrial fibrillation; E11.9 Type 2 diabetes mellitus without complications; G40.909 Epilepsy, unspecified, not intractable, without status epilepticus; E78.00 Pure hypercholesterolemia, unspecified; I10 Essential (primary) hypertension; I47.1 Supraventricular tachycardia; E78.2 Mixed hyperlipidemia; E03.9 Hypothyroidism, unspecified; D64.9 Anemia, unspecified; Z79.82 Long term (current) use of aspirin; Z79.84 Long term (current) use of oral hypoglycemic drugs; Z79.899 Other long term (current) drug therapy; Z95.0 Presence of cardiac pacemaker
CPT/HCPCS: 80053; 80061; 85025; 85347; 93460; 93567; 99152; 99153; C1769; J1644; J2250; J2720; J3010; Q9967

== ENCOUNTER 2019-04-02 08:54 | Outpatient (CLI) | payer MEDICARE, BC ==
--- NOTE | 2019-04-09 13:24 | MMO ---
Bilateral MAMMO Bilat Screen DDI+KESHA. CLINICAL HISTORY: Patient is 73 years old and is seen for screening. The patient has no family history of breast cancer. The patient has no personal history of cancer. VIEWS: The views performed were: bilateral craniocaudal with tomosynthesis and bilateral mediolateral oblique with tomosynthesis. FILMS COMPARED: The present examination has been compared to prior imaging studies performed at [facility] on 02/21/2012, 03/04/2014, 05/10/2015 and 01/07/2018. This study has been interpreted with the assistance of computer-aided detection. MAMMOGRAM FINDINGS: There are scattered fibroglandular densities. There are stable benign appearing calcifications seen in both breasts. There are also vascular calcifications. There are no suspicious masses, suspicious calcifications, or new areas of architectural distortion. IMPRESSION: THERE IS NO MAMMOGRAPHIC EVIDENCE OF MALIGNANCY. A ROUTINE FOLLOW-UP MAMMOGRAM IN 1 YEAR IS RECOMMENDED. THE RESULTS OF THIS EXAM WERE SENT TO THE PATIENT. ACR BI-RADS Category 2 - Benign finding MAMMOGRAPHY NOTE: 1. A negative mammogram report should not delay a biopsy if a dominant of clinically suspicious mass is present. 2. Approximately 10% to 15% of breast cancers are not detected by mammography. 3. Adenosis and dense breasts may obscure an underlying neoplasm. Reported by: SOUMYA SHEETS MD Electonically Signed: [id number]
== END 2019-04-02 08:55 | disposition home or self-care (01) ==
LOC: BICMAMMO 08:54
PROVIDERS: ATTEND Internal Medicine
DX: Z12.31 Encounter for screening mammogram for malignant neoplasm of breast (principal)
CPT/HCPCS: 77063; 77067

== ENCOUNTER 2019-05-06 14:54 | Inpatient (IN) | payer MEDICARE, BC ==
[2019-05-06] MEDS ORDERED: Amiodarone 150 MG, Admixture Fee 1 EACH in Dextrose 5% in Water 100 ML IVPB SCH (16:00)
[2019-05-06] MEDS ORDERED: Amiodarone 450 MG, Admixture Fee 1 EACH in Dextrose 5% in Water 250 ML IVPB SCH (16:00)
--- NOTE | 2019-05-06 16:09 | RAD ---
Exam: Chest one view HISTORY:Chest pain. Tachycardia. Comparison: 04/10/1969 FINDINGS: Cardiac silhouette:Cardiomegaly. Stable stent projecting over the cardiac silhouette. Stable sternoto my wires and dual lead left-sided transvenous pacemaker. Aorta: Atherosclerosis of the aortic knob Pulmonary vessels: Normal Costophrenic angles: Clear LUNGS: No masses or consolidation. Pneumothorax: None Osseous abnormalities: None IMPRESSION: 1. Atherosclerosis 2. Cardiomegaly without evidence of congestive heart failure
[2019-05-06 16:27] LABS: #Monocytes 0.4 thou/uL (0.11-0.59); %Basophils 0.4 % (0.0-1.0); %Eosinophils 0.9 % (0.0-10.0); %Lymphocytes 21.8 % (21.0-51.0); %Monocytes 8.7 % (0.0-10.0); %Neutrophils 68.3 % (42.0-75.0); Hemoglobin 8.5 g/dL (12.0-16.0); Mean Corpuscular HGB CONC 35.2 g/dL (32.0-36.0); Mean Corpuscular Hemoglobin 34.4 pg (27.0-31.0); Mean Corpuscular Volume 97.8 fL (78.0-98.0); Mean Platelet Volume 7.7 fL (7.4-10.4); Platelet Count 121 thou/uL (130-400); Red Blood Cell (RBC) Count 2.48 mill/uL (4.20-5.40); White Blood Cell (WBC) Count 4.4 thou/uL (4.8-10.8)
[2019-05-06] MEDS ORDERED: Digoxin 0.5 MG/2 ML AMP ONE (16:31)
[2019-05-06 16:36] LABS: ALT (SGPT) 13 U/L (8-55); AST (SGOT) 13 U/L (5-34); Albumin 4.2 g/dL (3.4-4.8); Alkaline Phosphatase 93 U/L (40-110); Anion Gap 17 mmol/L (10-20); BUN (Urea Nitrogen) 34 mg/dL (9.8-20.1); Bilirubin, Total 0.4 mg/dL (0.2-1.2); Calc. Creatinine Clearance 0 mL/min (70-130); Calcium 9.5 mg/dL (7.8-10.44); Carbon Dioxide 27 mmol/L (23-31); Chloride 98 mmol/L (98-107); Estimated GFR-MDRD 50; Globulin 2.6 g/dL (2.4-3.5); Glucose 107 mg/dL (83-110); Magnesium 1.8 mg/dL (1.6-2.6); Potassium 4.7 mmol/L (3.5-5.1); Protein, Total 6.8 g/dL (6.0-8.3); Sodium 137 mmol/L (136-145)
[2019-05-06 19:55] LABS: Troponin I 0.023 ng/mL (< 0.028)
[2019-05-06 21:28] LABS: CKMB 0.9 ng/mL (0-6.6)
[2019-05-06] MEDS: levETIRAcetam 500 MG TAB PO SCH (23:45)
[2019-05-06] MEDS: carBAMazepine 200 MG TAB PO SCH (23:46)
[2019-05-06 23:53] LABS: Troponin I 0.027 ng/mL (< 0.028)
[2019-05-07 02:27] VITALS: BMI 22.7
--- NOTE | 2019-05-07 06:22 | PDOC.HHP ---
Hospitalist HPI - History of Present Illness palpitations History of Present Illness: This is a 73 year old female with past medical history of TAVR in Feb 2019, mitral valve repair, atrial fibrillation who presented to the ER with palpitations. The patient states that she went for her cardiac rehab evaluation today and was noted to be tachycardic by the staff. She sat down for a few minutes and felt fluttering sensation in her chest that persisted, so she called Dr. Dyson's office who told her to come to the ER. The patient states palpitations lasted for approximately three minutes. She had no shortness of breath, chest pain, dizziness, or lightheadedness. She denies fevers, or chills. The patient is currently on metoprolol for her atrial fibrillation. She was previously on amiodarone but was told to stop it by her cardiologists at [facility] after her TAVR. She has not ambulated much since her surgery. ED Course: In the ER, the patient presented with heart rate of 123. EKG showed wide complex tachycardia. The patient was given amiodarone 150 mg bolus and started on amiodarone drip. She was also loaded with IV digoxin. Chest X ray showed cardiomegaly. THe patient was admitted for further evaluation. Hospitalist ROS - Review of Systems Constitutional: denies: fever, chills Eyes: denies: pain, vision change ENT: denies: ear pain, ear discharge Respiratory: denies: cough, dry, shortness of breath Cardiovascular: denies: chest pain, palpitations, orthopnea Gastrointestinal: denies: nausea, vomiting, abdominal pain, diarrhea, constipation Genitourinary: denies: dysuria, frequency, incontinence Musculoskeletal: denies: neck pain, shoulder pain, arm pain, back pain Skin: denies: rash, lesions Neurological: denies: weakness, numbness, incoordination - Medication Medications: Active Medications Generic Name Dose Route Start Last Admin Trade Name Freq PRN Reason Stop Dose Admin Carbamazepine 400 mg 05/07/19 08:00 05/06/19 23:46 Tegretol PO 400 mg BID-WM BRIANNA Administration Amiodarone HCl 450 mg/ 259 mls @ 0 mls/hr 05/06/19 16:00 05/07/19 03:29 Miscellaneous Medication 1 IVPB 259 mls each/ Dextrose/Water INF BRIANNA Administration Protocol As Directed Levetiracetam 1,000 mg 05/07/19 09:00 05/06/19 23:45 Keppra PO 1,000 mg BID BRIANNA Administration Hospitalist History - Past Medical History Other Medical History: Type II diabetes Hyperlipidemia Hypertension Absence seizures Asthma Atrial fibrillation - Past Surgical History Other Surgical History: Mitral valve repair Hernia repair Pacemaker in 2008 TAVR Aortic valve replacement 02/27/2019 - Family History Other Family History: Fatjer mary CJF. 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 - Exam General Appearance: NAD, awake alert Eye: PERRL, anicteric sclera ENT: normocephalic atraumatic, no oropharyngeal lesions Neck: supple, no JVD Heart: RRR, no gallops, no rubs Heart - other findings: systolic murmur second right intercostal space and in mitral area Respiratory: CTAB, no wheezes, no rales, no ronchi Gastrointestinal: soft, non-tender, non-distended, normal bowel sounds Extremities: no cyanosis, no clubbing, no edema Skin: normal turgor, no lesions, no rashes Neurological: cranial nerve grossly intact, normal sensation to touch, no focal deficits, no new deficit Musculoskeletal: normal tone, normal strength, no muscle wasting Hospitalist Results - Labs Result Diagrams: 05/06/19 16:07 05/06/19 16:07 Lab results: WBC 4.4 thou/uL (4.8-10.8) L 05/06/19 16:07 Hgb 8.5 g/dL (12.0-16.0) L 05/06/19 16:07 Hct 24.3 % (36.0-47.0) L 05/06/19 16:07 MCV 97.8 fL (78.0-98.0) 05/06/19 16:07 Plt Count 121 thou/uL (130-400) L 05/06/19 16:07 Neutrophils % 68.3 % (42.0-75.0) 05/06/19 16:07 Sodium 137 mmol/L (136-145) 05/06/19 16:07 Potassium 4.7 mmol/L (3.5-5.1) 05/06/19 16:07 Chloride 98 mmol/L (98-107) 05/06/19 16:07 Carbon Dioxide 27 mmol/L (23-31) 05/06/19 16:07 BUN 34 mg/dL (9.8-20.1) H 05/06/19 16:07 Creatinine 1.08 mg/dL (0.6-1.1) 05/06/19 16:07 Glucose 107 mg/dL (83-110) 05/06/19 16:07 Calcium 9.5 mg/dL (7.8-10.44) 05/06/19 16:07 Total Bilirubin 0.4 mg/dL (0.2-1.2) 05/06/19 16:07 AST 13 U/L (5-34) 05/06/19 16:07 ALT 13 U/L (8-55) 05/06/19 16:07 Alkaline Phosphatase 93 U/L (40-110) 05/06/19 16:07 CK-MB (CK-2) 0.9 ng/mL (0-6.6) 05/06/19 20:38 Troponin I 0.027 ng/mL (< 0.028) 05/06/19 23:17 B-Natriuretic Peptide 175.2 pg/mL (0-100) H 05/06/19 16:07 Serum Total Protein 6.8 g/dL (6.0-8.3) 05/06/19 16:07 Albumin 4.2 g/dL (3.4-4.8) 05/06/19 16:07 - EKG Interpretation EKG: wide complex tachycardia Hospitalist H&P A/P - Plan Plan: This is a 73 year old female with past medical history of atrial fibrillation, TAVR, cardiac ablation, pacemaker who presents with palpitations at cardiac rehab #Palpitations - possibly VT vs SVT with aberrancy #History of atrial fibrillation #S/p aortic valve replacement #Hx of mitral valve repair - continue amiodarone drip, currently weaned down to 0.5 mcg/hour - loaded with digoxin, will start oral digoxin - ECHO - troponin peaked at 0.037 - cardiology consult 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 - follows with oncologist in [place] Hypertension - continue lisinopril Type II diabetes - fingersticks achs - insulin sliding scale Hypothyroidism - continue levothyroxine History of absence seizures - continue home meds DVT prophylaxis : lovenox Code status: full code
[2019-05-07] MEDS ORDERED: Levothyroxine Sodium 125 MCG TAB PO SCH (06:30)
--- NOTE | 2019-05-07 06:36 | PDOC.FMACP ---
Advance Care Planning - Note Participants: patient Summary: Advanced Care Planning was discussed. The diagnosis, prognosis and goals of care were discussed. Appropriate forms and documentation to accomplish the goals of care were discussed. All questions were answered. The Palliative Care Team will be engaged to assist with completion of any outstanding forms that are needed. Patient states she would like to be full code. Her daughter she would like as primary HCP in case patient cannot make decisions for herself Time Spent (mins): 40
[2019-05-07 07:12] LABS: Anion Gap 14 mmol/L (10-20); BUN (Urea Nitrogen) 31 mg/dL (9.8-20.1); Calc. Creatinine Clearance 51 mL/min (70-130); Calcium 8.9 mg/dL (7.8-10.44); Carbon Dioxide 28 mmol/L (23-31); Chloride 101 mmol/L (98-107); Estimated GFR-MDRD 59; Glucose 103 mg/dL (83-110); Potassium 4.1 mmol/L (3.5-5.1); Sodium 139 mmol/L (136-145)
[2019-05-07] MEDS ORDERED: Amiodarone 200 MG TAB PO SCH (09:00)
[2019-05-07] MEDS ORDERED: Digoxin 0.125 MG TAB PO SCH (09:00)
[2019-05-07] MEDS ORDERED: Aspirin Chewable 81 MG TAB PO SCH (09:00)
[2019-05-07] MEDS ORDERED: Magnesium Oxide 400 MG TAB PO SCH (09:00)
[2019-05-07] MEDS ORDERED: Enoxaparin Sodium 40 MG/0.4 ML SYRINGE SC SCH (09:00)
[2019-05-07] MEDS ORDERED: Lisinopril 20 MG TAB PO SCH (09:00)
[2019-05-07] MEDS: carBAMazepine 200 MG TAB PO SCH ×2 (10:02→16:52)
[2019-05-07] MEDS: levETIRAcetam 500 MG TAB PO SCH (10:02)
[2019-05-07 13:06] LABS: T4 7.8 ug/dL (4.87-11.72); Thyroid Stimulating Hormone 2.3874 uIU/mL (0.35-4.94)
--- NOTE | 2019-05-07 13:47 | CON ---
DATE OF CONSULTATION: HISTORY OF PRESENT ILLNESS: Bev Delong is a 73-year-old white female sent from Cardiac Rehab due to tachycardia. I initially evaluated her in June 2005 at [facility]. She developed chest tightness, which radiated straight through to her back. She has had a Winkler's sign while describing it. She also had left shoulder and left elbow pain. She had shortness of breath and diaphoresis as well as nausea. The tightness lasted for 1 hour and then resolved. She went to see Dr. Deleon with this history, was admitted for further evaluation. She was started on Lovenox, given Plavix 300 mg and topical nitrates. Cardiac enzymes were unremarkable. She underwent cardiac catheterization, which revealed normal right-sided heart pressures. She had normal left ventricular function with ejection fraction of 50% to 55%, moderate mitral regurgitation, and mild aortic insufficiency. Coronary arteries were normal. She was not seen again until September 2008. At that time, she was admitted with pulmonary edema. She was diuresed and found to be in atrial fibrillation, but could not be electrically cardioverted in the emergency room. She underwent transesophageal echo, which revealed severe mitral regurgitation. She underwent mitral valve repair with ring annuloplasty with a #28 Jane mitral ring with associated maze procedure and left atrial appendage ligation. She did have problems with up to 6 second pauses and a permanent pacemaker was placed. She was undergoing cardiac rehabilitation and found to have persistent heart rate of 120 per minute. She was seen in the office and found to have atrial tachycardia with ventricular rate of 120. Amiodarone was increased to one tablet b.i.d. and metoprolol was increased to 200 XL q.a.m. The case was discussed with Dr. Gigi Malagon, who has seen her previously. Lanoxin was also added. She then presented to the emergency room on December 27, 2008, with increased shortness of breath. It was noted on chest x-ray that her atrial lead was in the innominate vein. 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 She was then taken back to the cath lab technologist and the lead was repositioned. With those medications, she had no further atrial tachycardia. She was on Coumadin therapy post mitral valve repair. She developed a seizure disorder on January 17, 2009 and Coumadin was discontinued. In July 2009, she was walking 20 minutes a day on the treadmill with no shortness of breath or chest pain. In August 2009, she underwent hysterectomy. She was placed in the Trendelenburg position during surgery and her heart rate fell into the 20s and was felt that her pacemaker was not functioning properly. After surgery, her pacemaker was checked and appeared to be functioning normally. In March 2016, she was admitted with acute respiratory failure and found to be in pulmonary edema. During that admission, she underwent transesophageal echo. It was found that her left atrial appendage was ligated and she only had mild mitral regurgitation and normal left ventricular function. She was in atrial fibrillation and was cardioverted with 200 joules. Later in March 2016, she was found to be back in atrial fibrillation. She then underwent atrial fibrillation ablation in [place] in May 2016. In July 2016, atrial fibrillation recurred. She underwent repeat cardioversion in August 2016 and March 2016. She then underwent a second atrial fibrillation ablation in March 2017. She has had rare atrial fibrillation since that time. When she was hospitalized in March 2016 with pulmonary edema, she underwent catheterization due to her aortic stenosis. She was found to have a mean gradient of 28 mm and aortic valve area of 1.08 cm2. Coronary arteries were normal. She had normal left ventricular function with ejection fraction of 55% to 60% and mild mitral regurgitation. Throughout 2018, she had progressive dyspnea. This would occur after walking 10 to 20 feet as well as feeling very fatigued. She denied any chest pain. Lasix was increased to 40 b.i.d., however, she was not compliant with that. With her increased shortness of breath and leg edema as well as history of aortic stenosis, she underwent catheterization on January 26, 2019. This revealed normal left ventricular function, ejection fraction of 55% to 60%. The mean aortic gradient was 37 mm with aortic valve area of 0.79 cm2. She then was referred to [facility] in [place] and underwent a TAVR on February 26, 2019. After that, she has had dramatic improvement in her breathing and significant decrease in her fatigue. She was seen in the office on April 23, 2019 and was essentially asymptomatic at that time. Yesterday, on May 06, 2019, she went to cardiac rehab. It was noted that she had a heart rate of 120 to 130 per minute and was sent to the ER. EKG showed probable atrial tachycardia with a rate of 122 per minute with wide QRS pattern. Pacemaker was interrogated and this indeed is an atrial tachycardia with aberrancy. She was placed on intravenous amiodarone and also given digoxin 0.5 mg IV. She has since converted to atrial pacing. She denied any chest discomfort or shortness of breath with this. She was asymptomatic until she was told that her heart was beating rapidly and at that time she did notice a slight flutter. PAST MEDICAL HISTORY: 1. Mitral valve repair, TAVR, history of atrial fibrillation and atrial tachycardia. 2. 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 3. Hypertension. 4. Hypercholesterolemia. 5. Diabetes. 6. History of seizure disorder. 7. Obesity. 8. Hypothyroidism. PAST SURGICAL HISTORY: Mitral valve repair with Jane ring, maze procedure and left atrial appendage ligation (2 transesophageal echoes that show that this is indeed ligated), atrial fibrillation ablation x2, multiple cardioversions, appendectomy, herniorrhaphy, pacemaker placement with repositioning of the atrial lead due to twiddler syndrome. She also has had replacement of the pacemaker, hysterectomy, TAVR in February 2019. MEDICATIONS: 1. Aspirin 81 daily. 2. Biotin 5 daily. 3. Tegretol 400 mg b.i.d. 4. Plavix 75 daily. 5. Furosemide 20 b.i.d. 6. Trulicity 0.75 q.7 days. 7. Keppra 1000 mg b.i.d. 8. Levothyroxine 125 mcg daily. 9. Lisinopril 20 daily. 10. Magnesium 400 daily. 11. Metformin 1000 b.i.d. 12. Metoprolol 25 b.i.d. 13. Rosuvastatin 40 daily. 14. Amiodarone 200 qd ALLERGIES: NONE. SOCIAL HISTORY: She does not smoke. She occasionally drinks. She is a retired insurance agency manager. FAMILY HISTORY: Father had bypass surgery and valve replacement. REVIEW OF SYSTEMS: A 10-point review of systems is otherwise unremarkable. PHYSICAL EXAMINATION: VITAL SIGNS: Blood pressure 118/59 and pulse of 60. HEENT: PERRL. NECK: Supple. CHEST: Clear. CARDIAC: S1 and S2 normal without any S3 or S4. There is a 2/6 systolic ejection murmur heard throughout the precordium. ABDOMEN: Normal bowel sounds without tenderness or organomegaly. EXTREMITIES: Revealed no clubbing, cyanosis, or edema. NEUROLOGIC: Grossly intact. SKIN: Warm and dry. LABORATORY DATA: Admission EKG revealed probable atrial tachycardia, nonspecific intraventricular conduction delay. Interrogation of the pacemaker showed atrial tachycardia with aberrancy. Hemoglobin 8.5, hematocrit 24.3, white count 4400, and platelets 121,000. Sodium 139, potassium 4.1, chloride 101, carbon dioxide 28, BUN 31, and creatinine 0.93. Troponin I 0.035. BNP 175.2. IMPRESSION: 1. Recurrence of atrial tachycardia. With intravenous amiodarone and IV digoxin , she has converted back to atrial pacing. 2. Status post transcatheter aortic valve replacement in February 2019 with dramatic improvement in her energy level and resolution of her shortness of breath. 3. Status post cardiac pacemaker procedure. This is a dual-chamber device. She does have high ventricular thresholds, but paces the ventricle less than 1%. 4. Status post mitral valve repair with mild mitral regurgitation on transesophageal echo. 5. Normal coronary arteries. 6. Paroxysmal atrial fibrillation. She has undergone 2 radiofrequency ablation , no atrial fibrillation was then seen since the last one in March 2017. 7. Left atrial appendage ligation at the time of mitral valve repair. Two transesophageal echoes, which showed that this is indeed ligated. 8. Hypercholesterolemia. 9. Hypertension. 10. Diabetes. 11. Hypothyroidism. 12. Seizure disorder. 13. Anemia. PLAN: The patient will be transitioned to p.o. amiodarone and also digoxin will be started to suppress the atrial tachycardia. Free T4 and TSH will be obtained to evaluate her thyroid status since she is on replacement. If her thyroid function is normal, then she may be discharged with the addition of digoxin 0.125 q.a.m. Job ID: [id number] [facility]
[2019-05-07 16:35] VITALS: BP 120/58; TEMP 98.4
[2019-05-07] MEDS ORDERED: Rosuvastatin 20 MG TAB PO SCH (21:00)
[2019-05-08] MEDS ORDERED: Levothyroxine Sodium 125 MCG TAB PO SCH (06:00)
--- NOTE | 2019-05-09 16:15 | EKG ---
Test Reason : Blood Pressure : / mmHG Vent. Rate : 122 BPM Atrial Rate : 093 BPM P-R Int : 000 ms QRS Dur : 160 ms QT Int : 400 ms P-R-T Axes : 000 -64 120 degrees QTc Int : 570 ms Wide QRS tachycardia Left axis deviation Non-specific intra-ventricular conduction block Abnormal ECG Confirmed by RAMESH MCKNIGHT M.D. ([id number]), associate entertainment editor WILLIAM PABON ([id number]) on 05/09/2019 4:15:07 PM Referred By: Confirmed By:RAMESH MCKNIGHT M.D.
== END 2019-05-07 18:00 | disposition home or self-care (01) | DRG 309 ==
LOC: ERS 14:54 → ERHOLD 17:17 → 2NO 21:09
PROVIDERS: ADMIT Emergency Medicine; ATTEND Emergency Medicine
DX: I48.0 Paroxysmal atrial fibrillation (principal); D61.818 Other pancytopenia; E11.9 Type 2 diabetes mellitus without complications; E78.5 Hyperlipidemia, unspecified; I10 Essential (primary) hypertension; G40.909 Epilepsy, unspecified, not intractable, without status epilepticus; J45.909 Unspecified asthma, uncomplicated; E03.9 Hypothyroidism, unspecified; E78.00 Pure hypercholesterolemia, unspecified; Z79.01 Long term (current) use of anticoagulants; Z95.2 Presence of prosthetic heart valve; Z95.0 Presence of cardiac pacemaker; Z90.49 Acquired absence of other specified parts of digestive tract; Z79.899 Other long term (current) drug therapy; Z79.82 Long term (current) use of aspirin; Z79.84 Long term (current) use of oral hypoglycemic drugs; Z79.890 Hormone replacement therapy
CPT/HCPCS: 36415; 71045; 80048; 80053; 82553; 83735; 83880; 84436; 84443; 84484; 85025; 93005; 93306; 94760; J0282; J1160; J1650; J7070

== ENCOUNTER 2020-01-26 09:22 | Outpatient (CLI) | payer MEDICARE, BC ==
--- NOTE | 2020-01-26 09:46 | BD ---
EXAM: Bone densitometry using DEXA HISTORY: 74 yo female. Screening for postmenopausal osteoporosis FINDINGS: L1--bone mineral density 0.519 g/sq cm; T score -4.3 ; Z score -2.3 L2--bone mineral density 0.588 g/sq cm; T score -4.0 ; Z score -1.8 L3--bone mineral density 0.715 g/sq cm; T score -2.4 ; Z score -1.0 L4--bone mineral density 0.754 g/sq cm; T score -2.8 ; Z score -0.4 Total L1-L4--bone mineral density 0.659 g/sq cm; T score -2.5 ; Z score -1.3 Left femoral neck--bone mineral density0.502; T score -2.1 ; Z score -1.2 Total proximal left femur--bone mineral density 0.580; T score -3.0 ; Z score -1.3 IMPRESSION: Osteoporosis
== END 2020-01-26 09:23 | disposition home or self-care (01) ==
LOC: BICMAMMO 09:22
PROVIDERS: ATTEND Internal Medicine
DX: M81.0 Age-related osteoporosis without current pathological fracture (principal)
CPT/HCPCS: 77080

== ENCOUNTER 2020-04-04 10:59 | Outpatient (CLI) | payer MEDICARE, BC ==
--- NOTE | 2020-04-04 11:39 | MMO ---
Bilateral MAMMO Bilat Screen DDI+KESHA. CLINICAL HISTORY: Patient is 74 years old and is seen for screening. The patient has no family history of breast cancer. The patient has no personal history of cancer. VIEWS: The views performed were: bilateral craniocaudal with tomosynthesis and bilateral mediolateral oblique with tomosynthesis. FILMS COMPARED: The present examination has been compared to prior imaging studies performed at [facility] on 03/04/2014, 05/10/2015, 01/07/2018 and 04/02/2019. This study has been interpreted with the assistance of computer-aided detection. MAMMOGRAM FINDINGS: There are scattered fibroglandular densities. There are stable benign appearing calcifications seen in both breasts. There are also vascular calcifications. There are no suspicious masses, suspicious calcifications, or new areas of architectural distortion. IMPRESSION: THERE IS NO MAMMOGRAPHIC EVIDENCE OF MALIGNANCY. A ROUTINE FOLLOW-UP MAMMOGRAM IN 1 YEAR IS RECOMMENDED. THE RESULTS OF THIS EXAM WERE SENT TO THE PATIENT. ACR BI-RADS Category 2 - Benign finding MAMMOGRAPHY NOTE: 1. A negative mammogram report should not delay a biopsy if a dominant of clinically suspicious mass is present. 2. Approximately 10% to 15% of breast cancers are not detected by mammography. 3. Adenosis and dense breasts may obscure an underlying neoplasm. Reported by: SOUMYA SHEETS MD Electonically Signed: [id number]
== END 2020-04-04 11:00 | disposition home or self-care (01) ==
LOC: BICMAMMO 10:59
PROVIDERS: ATTEND Internal Medicine
DX: Z12.31 Encounter for screening mammogram for malignant neoplasm of breast (principal)
CPT/HCPCS: 77063; 77067

== ENCOUNTER 2021-02-19 20:42 | Emergency (ER) | payer MEDICARE, BC ==
[2021-02-19 21:23] LABS: #Neutrophils 6.2 thou/uL (1.40-6.50); %Basophils 0.1 % (0.0-1.0); %Eosinophils 0.4 % (0.0-10.0); %Lymphocytes 12.4 % (21.0-51.0); %Monocytes 12.5 % (0.0-10.0); %Neutrophils 74.6 % (42.0-75.0); Hemoglobin 10.7 g/dL (12.0-16.0); Mean Corpuscular HGB CONC 33.9 g/dL (32.0-36.0); Mean Corpuscular Hemoglobin 34.3 pg (27.0-31.0); Mean Platelet Volume 7.2 fL (7.4-10.4); Platelet Count 100 thou/uL (130-400); RBC Distribution Width 18.5 % (11.5-14.5); Red Blood Cell (RBC) Count 3.13 mill/uL (4.20-5.40); White Blood Cell (WBC) Count 8.3 thou/uL (4.8-10.8)
[2021-02-19] MEDS ORDERED: Azithromycin 250 MG TAB ONE (21:54)
[2021-02-19] MEDS ORDERED: methylPREDNISolone Sod Succ/PF 125 MG/2 ML VIAL ONE (21:55)
[2021-02-19] MEDS ORDERED: cefTRIAXone\\ROCEPHIN 1 GM VIAL ONE (21:55)
[2021-02-19 23:06] LABS: Bacteria/HPF None Seen HPF (None Seen); Bilirubin Negative (Negative); Blood, Urine Negative (Negative); Clarity Clear (Clear); Glucose, Urine (Dipstick) Greater than 1000 mg/dL (Negative); Ketone, Urine Negative (Negative); Leukocyte 25 Leu/uL (Negative); Nitrite Negative (Negative); Protein, Urine (Dipstick) 30 mg/dL (Neg-Trace); RBC/HPF 0-3 HPF (0-3); Specific Gravity, Urine 1.027 (1.002-1.036); Squamous Epithelial 0-3 HPF (0-3); Urobilinogen Normal mg/dL (Less than 2)
[2021-02-20 00:07] LABS: ALT (SGPT) 26 U/L (8-55); AST (SGOT) 19 U/L (5-34); Albumin 3.9 g/dL (3.4-4.8); Alkaline Phosphatase 96 U/L (40-110); Anion Gap 17 mmol/L (10-20); BUN (Urea Nitrogen) 34 mg/dL (9.8-20.1); Bilirubin, Total 0.6 mg/dL (0.2-1.2); Calc. Creatinine Clearance 0 mL/min (70-130); Calcium 9.3 mg/dL (7.8-10.44); Carbon Dioxide 24 mmol/L (23-31); Chloride 102 mmol/L (98-107); Globulin 2.8 g/dL (2.4-3.5); Glucose 221 mg/dL (83-110); Potassium 4.6 mmol/L (3.5-5.1); Protein, Total 6.7 g/dL (5.8-8.1); Sodium 138 mmol/L (136-145)
[2021-02-20 00:08] LABS: SARS-CoV-2 NAA Rapid Test Not Detected (NotDetected)
== END 2021-02-20 01:23 | disposition short-term general hospital (02) ==
LOC: ERS 20:42
DX: J45.901 Unspecified asthma with (acute) exacerbation (principal); J20.9 Acute bronchitis, unspecified; I16.0 Hypertensive urgency; I10 Essential (primary) hypertension; Z20.822 Contact with and (suspected) exposure to COVID-19; J45.909 Unspecified asthma, uncomplicated; E11.9 Type 2 diabetes mellitus without complications; E78.5 Hyperlipidemia, unspecified; I48.91 Unspecified atrial fibrillation
CPT/HCPCS: 0240U; 71045; 80053; 83605; 83880; 84484; 85025; 87040; 87086; 93005; 94760; 36415; 81003; 81015; 96365; 96375; J0696; J2930; J7620

== ENCOUNTER 2021-04-20 12:04 | Outpatient (CLI) | payer MEDICARE, BC | END 2021-04-20 12:05 | disposition home or self-care (01) | LOC: RAD 12:04 | PROVIDERS: ATTEND Internal Medicine Critical Care Medicine | DX: R06.00 Dyspnea, unspecified (principal); I51.7 Cardiomegaly | CPT/HCPCS: 71046 ==

== ENCOUNTER 2022-03-21 14:59 | Outpatient (CLI) | payer MEDICARE, BC | END 2022-03-21 15:00 | disposition home or self-care (01) | LOC: RAD 14:59 | PROVIDERS: ATTEND Internal Medicine Critical Care Medicine | DX: R06.00 Dyspnea, unspecified (principal) | CPT/HCPCS: 71046 ==

== ENCOUNTER 2023-02-19 09:31 | Outpatient (CLI) | payer MEDICARE, BC | END 2023-02-19 09:32 | disposition home or self-care (01) | LOC: RAD 09:31 | PROVIDERS: ATTEND Internal Medicine Critical Care Medicine | DX: R06.00 Dyspnea, unspecified (principal) | CPT/HCPCS: 71046 ==

== ENCOUNTER 2023-02-22 09:05 | Outpatient (CLI) | payer MEDICARE, BC | END 2023-02-22 09:06 | disposition home or self-care (01) | LOC: RAD 09:05 | PROVIDERS: ATTEND Internal Medicine Critical Care Medicine | DX: R06.00 Dyspnea, unspecified (principal); E87.70 Fluid overload, unspecified | CPT/HCPCS: 71046 ==

== ENCOUNTER 2023-03-29 11:26 | Day surgery (SDC) | payer MEDICARE, BC ==
[2023-03-29] MEDS ORDERED: Acetaminophen 500 MG TAB PO SCH (12:00)
[2023-03-29] MEDS ORDERED: diphenhydrAMINE 25 MG CAP PO SCH (12:00)
[2023-03-29] MEDS ORDERED: Acetaminophen 500 MG TAB ONE (12:56)
[2023-03-29 16:49] VITALS: BP 127/62; TEMP 98.3
== END 2023-03-29 16:51 | disposition home or self-care (01) ==
LOC: ONC/OP 11:26
PROVIDERS: ATTEND Internal Medicine
DX: D64.9 Anemia, unspecified (principal); D69.6 Thrombocytopenia, unspecified
CPT/HCPCS: 36430; 86850; 86900; 86901; 86920; P9016

== ENCOUNTER 2023-11-04 11:07 | Emergency (ER) | payer MEDICARE, BC ==
[2023-11-04] MEDS ORDERED: HYDROcodone/Acetaminophen 5/325 mg Tablet ONE (12:40)
== END 2023-11-04 14:16 | disposition home or self-care (01) ==
LOC: ERS 11:07
DX: S22.059A Unspecified fracture of T5-T6 vertebra, initial encounter for closed fracture (principal); S22.41XA Multiple fractures of ribs, right side, initial encounter for closed fracture; I10 Essential (primary) hypertension; E11.9 Type 2 diabetes mellitus without complications; W06.XXXA Fall from bed, initial encounter
CPT/HCPCS: 72128; 72131

== ENCOUNTER 2024-01-05 20:16 | Emergency (ER) | payer MEDICARE, BC ==
[2024-01-05 20:53] LABS: Actual Bicarbonate (HCO3v) 27.9 mEq/L (22-28); Base Excess 2.5 mEq/L (-2.0 to +3.0); Calcium, Ionized (venous) 1.08 mmol/L (1.16-1.32); Chloride (VBG) 94 mmol/L (98-106); Hematocrit-VBG 30 % (36.0-47.0); Hemoglobin (Hb) 10.2 g/dL (11.7-16.1); Sodium 131 mmol/L (133-146)
[2024-01-05 21:06] LABS: Phosphorus 4.3 mg/dL (2.3-4.7)
[2024-01-05 21:07] LABS: Mean Corpuscular HGB CONC 32.1 g/dL (32.0-36.0); Mean Corpuscular Hemoglobin 35.4 pg (27.0-31.0); Mean Corpuscular Volume 110.2 fL (78.0-98.0); Mean Platelet Volume 9.2 fL (7.4-10.4); Platelet Count 141 10x3/uL (130-400); RBC Distribution Width 22.5 % (11.5-14.5); Red Blood Cell (RBC) Count 2.54 mill/uL (4.20-5.40)
[2024-01-05 21:13] LABS: Troponin I 0.011 ng/mL (< 0.028)
[2024-01-05 21:34] LABS: Anisocytosis SLIGHT = 6-15 cells HPF (0-5); Band 4 % (5-11); Eosinophils 1 % (0-10); Lymphocytes 19 % (21-51); Macrocytosis MODERATE=16-30 cells HPF (0-5); Metamyelocyte 1 % (0-0); Monocytes 4 % (0-10); Neutrophil 71 % (42-75); Nucleated RBC (Manual Ct) 51 % (0); Platelet Adequacy Comment Platelets Normal; Polychromasia MODERATE = 3-4 cells HPF (0-2); Stomatocytes SLIGHT = 2-5 cells HPF (0-1)
[2024-01-05 23:34] LABS: ALT (SGPT) 40 U/L (8-55); AST (SGOT) 32 U/L (5-34); Albumin 3.3 g/dL (3.4-4.8); Alkaline Phosphatase 333 U/L (40-110); Anion Gap 17 mmol/L (10-20); BUN (Urea Nitrogen) 27 mg/dL (9.8-20.1); Bilirubin, Total 0.9 mg/dL (0.2-1.2); Calc. Creatinine Clearance 0 mL/min (70-130); Calcium 8.5 mg/dL (7.8-10.44); Carbon Dioxide 23 mmol/L (23-31); Chloride 95 mmol/L (98-107); Estimated GFR 48; Globulin 3.6 g/dL (2.4-3.5); Glucose 464 mg/dL (83-110); Lipase 41 U/L (8-78); Magnesium 2.3 mg/dL (1.6-2.6); Potassium 5.1 mmol/L (3.5-5.1); Protein, Total 6.9 g/dL (5.8-8.1); Sodium 130 mmol/L (136-145)
[2024-01-06 00:24] LABS: Bacteria/HPF None Seen HPF (None Seen); Bilirubin Negative (Negative); Blood, Urine Negative (Negative); CAUTI Indications for Culture Dysuria,urgency,freq; Clarity Clear (Clear); Glucose, Urine (Dipstick) Greater than 1000 mg/dL (Negative); Ketone, Urine Negative (Negative); Leukocyte Negative Leu/uL (Negative); Nitrite Negative (Negative); Protein, Urine (Dipstick) 50 mg/dL (Neg-Trace); RBC/HPF 0-3 HPF (0-3); Specific Gravity, Urine 1.018 (1.002-1.036); Squamous Epithelial 0-3 HPF (0-3); Urobilinogen Normal mg/dL (Less than 2)
[2024-01-06 00:26] LABS: Urine Culture Reflex No No
== END 2024-01-06 03:17 | disposition home or self-care (01) ==
LOC: ERS 20:16
DX: E11.65 Type 2 diabetes mellitus with hyperglycemia (principal); I10 Essential (primary) hypertension; I48.91 Unspecified atrial fibrillation
CPT/HCPCS: 36415; 36416; 71045; 80053; 81001; 82010; 82805; 83605; 83690; 83735; 84100; 84484; 85025; 99284

== ENCOUNTER 2024-01-15 08:59 | Outpatient (CLI) | payer MEDICARE, BC | END 2024-01-15 09:00 | disposition home or self-care (01) | LOC: RAD 08:59 | PROVIDERS: ATTEND Internal Medicine Critical Care Medicine | DX: R06.00 Dyspnea, unspecified (principal); R91.8 Other nonspecific abnormal finding of lung field; I51.89 Other ill-defined heart diseases | CPT/HCPCS: 71046 ==

== ENCOUNTER 2024-01-20 14:13 | Observation (INO) | payer MEDICARE, BC ==
[2024-01-20 15:18] LABS: PTT 27.1 sec (22.9-36.1); Prothrombin Time 13.1 sec (12.0-14.7)
[2024-01-20 15:28] LABS: Hematocrit 30.3 % (36.0-47.0); Hemoglobin 10.1 g/dL (12.0-16.0); Mean Corpuscular HGB CONC 33.3 g/dL (32.0-36.0); Mean Corpuscular Hemoglobin 35.6 pg (27.0-31.0); Mean Corpuscular Volume 106.7 fL (78.0-98.0); Mean Platelet Volume 9.5 fL (7.4-10.4); Platelet Count 128 10x3/uL (130-400); Red Blood Cell (RBC) Count 2.84 mill/uL (4.20-5.40)
[2024-01-20 15:33] LABS: Carbamazepine-Tegretol 8.7 ug/mL (4.0-12.0)
[2024-01-20 15:34] LABS: ALT (SGPT) 24 U/L (8-55); AST (SGOT) 26 U/L (5-34); Albumin 3.6 g/dL (3.4-4.8); Alkaline Phosphatase 230 U/L (40-110); Anion Gap 16 mmol/L (10-20); BUN (Urea Nitrogen) 38 mg/dL (9.8-20.1); Bilirubin, Total 1.3 mg/dL (0.2-1.2); Calc. Creatinine Clearance 0 mL/min (70-130); Calcium 8.6 mg/dL (7.8-10.44); Carbon Dioxide 26 mmol/L (23-31); Chloride 95 mmol/L (98-107); Estimated GFR 46; Globulin 2.9 g/dL (2.4-3.5); Glucose 350 mg/dL (83-110); Magnesium 2.2 mg/dL (1.6-2.6); Potassium 4.7 mmol/L (3.5-5.1); Protein, Total 6.5 g/dL (5.8-8.1); Sodium 132 mmol/L (136-145)
[2024-01-20 15:36] LABS: Troponin I Less than 0.010 ng/mL (< 0.028)
[2024-01-20 16:09] LABS: Anisocytosis MARKED = >30 cells HPF (0-5); Band 1 % (5-11); Basophilic Stippling MODERATE = 3-5 cells HPF (None Seen); Lymphocytes 8 % (21-51); Metamyelocyte 2 % (0-0); Microcytosis SLIGHT = 6-15 cells HPF (0-5); Monocytes 9 % (0-10); Myelocyte 1 % (0-0); Neutrophil 79 % (42-75); Nucleated RBC (Manual Ct) 116 % (0); Platelet Adequacy Comment Platelets Decreased; Polychromasia MODERATE = 3-4 cells HPF (0-2)
[2024-01-20] MEDS ORDERED: LORazepam 2 MG/ML SYR.(CARPUJECT) ONE (16:35)
[2024-01-20] MEDS ORDERED: levETIRAcetam 500 MG (5 mL) VIAL ONE (16:43)
[2024-01-20] MEDS ORDERED: Metoprolol Tartrate 25 MG TAB ONE (18:12)
[2024-01-20 21:50] VITALS: BMI 20.9
[2024-01-20] MEDS ORDERED: Acetaminophen 325 MG TAB PO PRN (22:38)
[2024-01-20] MEDS ORDERED: Dextrose 5% in Water 1,000 ML IV PRN (22:38)
[2024-01-20] MEDS ORDERED: Insulin Lispro 100 UNIT/ML 10 ML VIAL SC PRN (22:38)
[2024-01-20] MEDS ORDERED: Acetaminophen 650 MG Suppository PR PRN (22:38)
[2024-01-20] MEDS ORDERED: Dextrose 50% Abboject 50 ML SYRINGE SLOW IVP PRN (22:38)
[2024-01-20] MEDS ORDERED: Glucagon 1 MG/ML KIT IM PRN (22:38)
[2024-01-20] MEDS: levETIRAcetam 500 MG TAB PO SCH (22:55)
[2024-01-20] MEDS: Senokot S 8.6-50 MG TAB PO SCH (22:55)
[2024-01-20] MEDS: Montelukast Sodium 10 mg Tablet PO SCH (22:56)
[2024-01-20] MEDS: metFORMIN 500 MG TAB PO SCH (22:56)
[2024-01-20] MEDS: Torsemide 20 MG TAB PO SCH (22:56)
[2024-01-20] MEDS: Ascorbic Acid 500 mg Chewable Tablet PO SCH (22:56)
[2024-01-20] MEDS: Icosapent Ethyl 1 GM CAPSULE PO SCH (22:56)
[2024-01-20] MEDS: Rosuvastatin 20 MG TAB PO SCH (22:57)
[2024-01-20] MEDS: Zolpidem Tartrate 5 MG TAB PO SCH (23:51)
[2024-01-21] MEDS: Zolpidem Tartrate 5 MG TAB PO SCH (01:58)
[2024-01-21 04:55] LABS: Hematocrit 30.1 % (36.0-47.0); Hemoglobin 9.5 g/dL (12.0-16.0); Mean Corpuscular HGB CONC 31.6 g/dL (32.0-36.0); Mean Corpuscular Hemoglobin 34.3 pg (27.0-31.0); Mean Corpuscular Volume 108.7 fL (78.0-98.0); Platelet Count 96 10x3/uL (130-400); RBC Distribution Width 21.2 % (11.5-14.5); Red Blood Cell (RBC) Count 2.77 mill/uL (4.20-5.40)
[2024-01-21 05:00] LABS: Anion Gap 17 mmol/L (10-20); BUN (Urea Nitrogen) 34 mg/dL (9.8-20.1); Calc. Creatinine Clearance 41 mL/min (70-130); Calcium 8.4 mg/dL (7.8-10.44); Carbon Dioxide 26 mmol/L (23-31); Chloride 100 mmol/L (98-107); Estimated GFR 60; Glucose 141 mg/dL (83-110); Sodium 139 mmol/L (136-145)
[2024-01-21 05:18] LABS: Hypochromia SLIGHT = 6-15 cells HPF (0-5); Lymphocytes 17 % (21-51); Macrocytosis SLIGHT = 6-15 cells HPF (0-5); Monocytes 9 % (0-10); Neutrophil 72 % (42-75); Nucleated RBC (Manual Ct) 63 % (0); Platelet Adequacy Comment Platelets Decreased; Polychromasia SLIGHT = 2-3 cells HPF (0-2); Reactive Lymphocytes 2 % (0-10)
[2024-01-21] MEDS ORDERED: Levothyroxine Sodium 125 MCG TAB PO SCH (06:00)
[2024-01-21] MEDS: Levothyroxine Sodium 112 MCG TAB PO SCH (06:16)
[2024-01-21] MEDS: Levothyroxine Sodium 25 MCG TAB PO SCH (06:16)
[2024-01-21] MEDS ORDERED: [UNRECOGNIZED DRUG - OTHER] PO SCH (09:00)
[2024-01-21] MEDS: Ferrous Sulfate 325 MG TAB PO SCH (09:40)
[2024-01-21] MEDS: Amiodarone 200 MG TAB PO SCH (09:40)
[2024-01-21] MEDS: Magnesium Oxide 400 MG TAB PO SCH (09:41)
[2024-01-21] MEDS: Digoxin 0.125 MG TAB PO SCH (09:41)
[2024-01-21] MEDS: Saxagliptin 2.5 MG TAB PO SCH (09:41)
[2024-01-21] MEDS: carBAMazepine 200 MG TAB PO SCH (09:42)
[2024-01-21] MEDS: Gabapentin 100 MG CAP PO SCH (09:42)
[2024-01-21] MEDS: Aspirin Chewable 81 MG TAB PO SCH (09:43)
[2024-01-21] MEDS: Empagliflozin 25 MG TAB PO SCH (09:43)
[2024-01-21] MEDS: FLU (Fluad Triv) TS24-25 (65UP)/MF59C/PF 45 MCG/0.5 ML Syringe IM ONE (09:44)
[2024-01-21 13:17] VITALS: TEMP 97.9
[2024-01-21 14:38] VITALS: BP 132/75
== END 2024-01-21 17:42 | disposition home or self-care (01) ==
LOC: ERS 14:13 → 2SE 19:00
PROVIDERS: ADMIT Internal Medicine; ATTEND Internal Medicine
DX: G40.909 Epilepsy, unspecified, not intractable, without status epilepticus (principal); I48.0 Paroxysmal atrial fibrillation; I12.9 Hypertensive chronic kidney disease with stage 1 through stage 4 chronic kidney disease, or unspecified chronic kidney disease; N18.30 Chronic kidney disease, stage 3 unspecified; E11.22 Type 2 diabetes mellitus with diabetic chronic kidney disease; E78.5 Hyperlipidemia, unspecified; E03.9 Hypothyroidism, unspecified; J45.909 Unspecified asthma, uncomplicated; D46.9 Myelodysplastic syndrome, unspecified; Z95.0 Presence of cardiac pacemaker; Z90.49 Acquired absence of other specified parts of digestive tract; Z90.710 Acquired absence of both cervix and uterus; Z98.890 Other specified postprocedural states; Z79.890 Hormone replacement therapy; Z79.82 Long term (current) use of aspirin; Z79.51 Long term (current) use of inhaled steroids; Z79.899 Other long term (current) drug therapy
CPT/HCPCS: 70450; 80048; 80156; 80177; 82962 ×2; 83735; 84146; 84484; 85025; 85610; 85730; 93005; 94760; 96374; 96375; 97116; 97139; 99285; G0378 ×3; J1953; J2060; 36415; 36416; 80053; 84443

== ENCOUNTER 2024-01-29 14:17 | Outpatient (CLI) | payer MEDICARE, BC | END 2024-01-29 14:18 | disposition home or self-care (01) | LOC: EEG 14:17 | PROVIDERS: ATTEND Psychiatry & Neurology Neurology | DX: G31.84 Mild cognitive impairment of uncertain or unknown etiology (principal); R56.9 Unspecified convulsions | CPT/HCPCS: 95816 ==

== ENCOUNTER 2024-02-08 08:46 | Observation (INO) | payer MEDICARE, BC ==
[2024-02-08 09:05] LABS: #Basophils 0.06 10x3/uL (0.0-0.2); %Basophils 0.8 % (0.0-1.0); %Eosinophils 0.9 % (0.0-10.0); %Lymphocytes 9.1 % (21.0-51.0); %Monocytes 11.1 % (0.0-10.0); Hematocrit 35.4 % (36.0-47.0); Hemoglobin 11.4 g/dL (12.0-16.0); Mean Corpuscular HGB CONC 32.2 g/dL (32.0-36.0); Mean Corpuscular Hemoglobin 35.4 pg (27.0-31.0); Mean Corpuscular Volume 109.9 fL (78.0-98.0); Mean Platelet Volume 11.5 fL (7.4-10.4); Platelet Count 80 10x3/uL (130-400); RBC Distribution Width 22.1 % (11.5-14.5); Red Blood Cell (RBC) Count 3.22 mill/uL (4.20-5.40)
[2024-02-08 09:28] LABS: Troponin I Less than 0.010 ng/mL (< 0.028)
[2024-02-08 09:29] LABS: Mean Corpuscular HGB CONC 32.3 g/dL (32.0-36.0); Mean Corpuscular Hemoglobin 35.8 pg (27.0-31.0); Mean Corpuscular Volume 111.1 fL (78.0-98.0); Mean Platelet Volume 9.8 fL (7.4-10.4); Platelet Count 109 10x3/uL (130-400); RBC Distribution Width 21.6 % (11.5-14.5); Red Blood Cell (RBC) Count 2.79 mill/uL (4.20-5.40)
[2024-02-08 09:34] LABS: Band 4 % (5-11); Eosinophils 1 % (0-10); Lymphocytes 9 % (21-51); Macrocytosis SLIGHT = 6-15 cells HPF (0-5); Metamyelocyte 1 % (0-0); Monocytes 4 % (0-10); Myelocyte 1 % (0-0); Neutrophil 80 % (42-75); Nucleated RBC (Manual Ct) 32 % (0); Platelet Adequacy Comment Platelets Decreased; Polychromasia MODERATE = 3-4 cells HPF (0-2)
[2024-02-08 09:35] LABS: ALT (SGPT) 19 U/L (8-55); AST (SGOT) 35 U/L (5-34); Albumin 3.6 g/dL (3.4-4.8); Alkaline Phosphatase 129 U/L (40-110); Anion Gap 20 mmol/L (10-20); BUN (Urea Nitrogen) 26 mg/dL (9.8-20.1); Bilirubin, Total 1.1 mg/dL (0.2-1.2); CK (CPK) 40 U/L (29-168); Calc. Creatinine Clearance 0 mL/min (70-130); Calcium 8.1 mg/dL (7.8-10.44); Carbon Dioxide 17 mmol/L (23-31); Chloride 104 mmol/L (98-107); Estimated GFR 72; Glucose 247 mg/dL (83-110); Potassium 4.8 mmol/L (3.5-5.1); Protein, Total 6.6 g/dL (5.8-8.1); Sodium 136 mmol/L (136-145)
[2024-02-08 09:36] LABS: ALT (SGPT) 18 U/L (8-55); AST (SGOT) 26 U/L (5-34); Albumin 3.4 g/dL (3.4-4.8); Alkaline Phosphatase 123 U/L (40-110); Anion Gap 16 mmol/L (10-20); BUN (Urea Nitrogen) 26 mg/dL (9.8-20.1); Bilirubin, Total 1.2 mg/dL (0.2-1.2); Calc. Creatinine Clearance 0 mL/min (70-130); Calcium 7.9 mg/dL (7.8-10.44); Carbon Dioxide 21 mmol/L (23-31); Chloride 103 mmol/L (98-107); Estimated GFR 74; Globulin 2.7 g/dL (2.4-3.5); Glucose 240 mg/dL (83-110); Potassium 4.3 mmol/L (3.5-5.1); Protein, Total 6.1 g/dL (5.8-8.1); Sodium 136 mmol/L (136-145)
[2024-02-08 09:40] LABS: Troponin I Less than 0.010 ng/mL (< 0.028)
[2024-02-08 09:55] LABS: Anisocytosis SLIGHT = 6-15 cells HPF (0-5); Hypersegmented Neutrophil SLIGHT (None Seen); Lymphocytes 9 % (21-51); Macrocytosis SLIGHT = 6-15 cells HPF (0-5); Metamyelocyte 1 % (0-0); Monocytes 7 % (0-10); Myelocyte 2 % (0-0); Neutrophil 80 % (42-75); Nucleated RBC (Manual Ct) 37 % (0); Platelet Adequacy Comment Platelets Decreased; Polychromasia MARKED = >4 cells HPF (0-2); Schistocytes SLIGHT = 2-5 cells HPF (0-1)
[2024-02-08] MEDS ORDERED: levETIRAcetam 500 MG (5 mL) VIAL ONE (10:05)
[2024-02-08 10:08] LABS: Prothrombin Time 13.5 sec (12.0-14.7)
[2024-02-08 10:09] LABS: PTT 28.3 sec (22.9-36.1)
[2024-02-08] MEDS ORDERED: Metoprolol Tartrate 50 MG TAB ONE (10:19)
[2024-02-08] MEDS ORDERED: Iopamidol-370 76% 500 ML MDV (1 ML CHARGE) ONE (11:05)
[2024-02-08] MEDS ORDERED: Lorazepam 2 MG/ML VIAL SLOW IVP PRN (12:40)
[2024-02-08] MEDS ORDERED: Insulin Lispro 100 UNIT/ML 10 ML VIAL SC PRN (12:40)
[2024-02-08] MEDS ORDERED: Acetaminophen 325 MG TAB PO PRN (12:40)
[2024-02-08] MEDS ORDERED: Glucagon 1 MG/ML KIT IM PRN (12:40)
[2024-02-08] MEDS ORDERED: hydrALAZINE 20 MG/ML VIAL SLOW IVP PRN (12:40)
[2024-02-08] MEDS ORDERED: Dextrose 5% in Water 1,000 ML IV PRN (12:40)
[2024-02-08] MEDS ORDERED: Dextrose 50% Abboject 50 ML SYRINGE SLOW IVP PRN (12:40)
[2024-02-08 13:04] LABS: Carbamazepine-Tegretol 4.9 ug/mL (4.0-12.0)
[2024-02-08 13:58] VITALS: BMI 24.7
[2024-02-08] MEDS ORDERED: Insulin Lispro 100 UNIT/ML 10 ML VIAL ONE (17:28)
[2024-02-08] MEDS: Insulin Lispro 100 UNIT/ML 10 ML VIAL SC PRN (18:00)
[2024-02-08] MEDS: Oxybutynin 5 MG TAB PO SCH (20:46)
[2024-02-08] MEDS: busPIRone HCl 5 MG TAB PO SCH (20:46)
[2024-02-08] MEDS: Gabapentin 100 MG CAP PO SCH (20:47)
[2024-02-08] MEDS: levETIRAcetam 500 MG (5 mL) VIAL SLOW IVP SCH (20:48)
[2024-02-08] MEDS: carBAMazepine 200 MG TAB PO SCH ×2 (21:20→21:49)
[2024-02-08] MEDS: Zolpidem Tartrate 5 MG TAB PO PRN (22:48)
[2024-02-09] MEDS: Budesonide 0.5 MG/2 ML NEB NEB SCH ×2 (02:27→09:05)
[2024-02-09 04:47] LABS: Anion Gap 14 mmol/L (10-20); BUN (Urea Nitrogen) 29 mg/dL (9.8-20.1); Calc. Creatinine Clearance 43 mL/min (70-130); Carbon Dioxide 20 mmol/L (23-31); Chloride 108 mmol/L (98-107); Estimated GFR 63; Glucose 175 mg/dL (83-110); Potassium 4.1 mmol/L (3.5-5.1); Sodium 138 mmol/L (136-145)
[2024-02-09 05:09] LABS: Hematocrit 28.3 % (36.0-47.0); Mean Corpuscular HGB CONC 31.8 g/dL (32.0-36.0); Mean Corpuscular Hemoglobin 36.1 pg (27.0-31.0); Mean Corpuscular Volume 113.7 fL (78.0-98.0); Mean Platelet Volume 9.7 fL (7.4-10.4); Platelet Count 105 10x3/uL (130-400); RBC Distribution Width 21.4 % (11.5-14.5); Red Blood Cell (RBC) Count 2.49 mill/uL (4.20-5.40)
[2024-02-09 06:32] LABS: Anisocytosis MODERATE=16-30 cells HPF (0-5); Band 1 % (5-11); Lymphocytes 17 % (21-51); Macrocytosis SLIGHT = 6-15 cells HPF (0-5); Monocytes 11 % (0-10); Myelocyte 4 % (0-0); Neutrophil 65 % (42-75); Nucleated RBC (Manual Ct) 20 % (0); Platelet Adequacy Comment Platelets Decreased; Polychromasia SLIGHT = 2-3 cells HPF (0-2); Smudge Cells 16.3 %
[2024-02-09] MEDS: Enoxaparin 40 MG (0.4 mL) SYRINGE SC SCH (09:03)
[2024-02-09 09:15] VITALS: BP 130/69; TEMP 98
== END 2024-02-09 13:08 | disposition home or self-care (01) ==
LOC: ERS 08:46 → ERHOLD 12:03 → 2SE 18:49
PROVIDERS: ADMIT Internal Medicine; ATTEND Internal Medicine
DX: G40.909 Epilepsy, unspecified, not intractable, without status epilepticus (principal); I48.0 Paroxysmal atrial fibrillation; I12.9 Hypertensive chronic kidney disease with stage 1 through stage 4 chronic kidney disease, or unspecified chronic kidney disease; N18.30 Chronic kidney disease, stage 3 unspecified; E11.22 Type 2 diabetes mellitus with diabetic chronic kidney disease; E78.5 Hyperlipidemia, unspecified; E03.9 Hypothyroidism, unspecified; Z79.4 Long term (current) use of insulin; Z79.82 Long term (current) use of aspirin; Z79.890 Hormone replacement therapy; Z79.899 Other long term (current) drug therapy
CPT/HCPCS: 70450; 70496; 70498; 71045; 80048; 80053 ×2; 80156; 80177; 82550; 82962 ×2; 84146; 84484 ×2; 85025 ×3; 85610; 85730; 93005; 94640; 94760; 96372; 96374; 96376 ×2; 97139; 99285; G0378 ×3; J1650; J1815 ×2; J1953 ×2; Q9967; 36415; 36416; J7626

== ENCOUNTER 2024-02-18 08:51 | Outpatient (CLI) | payer MEDICARE, BC | END 2024-02-18 08:52 | disposition home or self-care (01) | LOC: BICMAMMO 08:51 | PROVIDERS: ATTEND Internal Medicine | DX: Z78.0 Asymptomatic menopausal state (principal); Z81.0 Family history of intellectual disabilities; M85.89 Other specified disorders of bone density and structure, multiple sites | CPT/HCPCS: 77080 ==